=== PATIENT | female | born 2000 | race Caucasian/White ===

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

== ENCOUNTER → 2020-04-09 14:49 | Outpatient (CLI) | payer OTHER, SELFPAY ==
[2020-04-09 15:46] LABS: COVID19 -Nasal RAPID Negative (Negative)
== END ==
PROVIDERS: Visit Provider Physician Assistant
DX: R11.0 Nausea (principal); R52 Pain, unspecified
CPT/HCPCS: 87635

== ENCOUNTER 2020-12-22 22:41 | Emergency (ER) | payer OTHER, SELFPAY ==
[2020-12-22 22:52] VITALS: BP 120/77; PULSE 77; RESP 18; TEMP 36.8; O2SAT 99; BMI 18.9
--- NOTE | 2020-12-23 02:31 | ED.DENTAL ---
HPI - Dental/Oral General Chief complaint: Dental/Oral Stated complaint: LEFT SIDE SWELLING OF FACE Time Seen by Provider: 12/23/20 02:12 Source: patient Mode of arrival: Ambulatory Limitations: no limitations History of Present Illness HPI Narrative: Female who has history of chronic kidney issues with kidney transplant in the past presenting with sudden onset of left-sided facial swelling. He he states that it started while she was eating soup. She does not have any dental pain but started noticing some discomfort in her left lower jaw. Boyfriend thought that her face was getting more swollen. No difficulty swallowing or breathing. She was sleeping is before I entered the room Related Data Home Medications Medication Instructions Recorded Confirmed [BAKING SODA] 1 5ml Q DAY #0 01/12/16 04/09/20 cholecalciferol (vitamin D3) 25 1,000 unit PO QDAY #0 tab 01/12/16 04/09/20 mcg (1,000 unit) tablet (Vitamin D3) Allergies Allergy/AdvReac Type Severity Reaction Status Date / Time ibuprofen [IBUPROFEN] Allergy Unknown KIDNEY Verified 12/22/20 22:52 TRANSPLANT PT Review of Systems Review of Systems Narrative: GENERAL: Denies chills,fever HEENT: See HPI RESPIRATORY: Denies dyspnea, cough, wheezing CARDIOVASCULAR: Denies chest pain, palpitations GASTROINTESTINAL: Denies nausea, vomiting MUSCULOSKELETAL: Denies extremity pain, injury SKIN: No rash, no laceration, no pruritus NEUROLOGIC: Denies weakness, dizziness, headache, numbness 8 point review of systems is negative except for those stated above and HPI Patient History Medical History (Updated 12/23/20 @ 02:39 by Kaya Carrillo DO) Cloacal malformation URI (upper respiratory infection) Surgical History Kidney transplant recipient Social History lives independently: Yes Smoking Status: Never smoker Smoking Status: Never smoker alcohol intake frequency: 0-2 drinks per day Substance Use Type: does not use Exam Initial Vital Signs Initial Vital Signs: Vital Signs Temperature 98.2 F 12/22/20 22:52 Pulse Rate 77 12/22/20 22:52 Respiratory Rate 18 12/22/20 22:52 Blood Pressure 120/77 12/22/20 22:52 Pulse Oximetry 99 12/22/20 22:52 GENERAL: Well-appearing, well-nourished and in no acute distress. HENT: Minimal swelling noted on left side no cervical lymphadenopathy EARS: Ears are evaluated bilaterally no erythema tympanic membrane visualized bilaterally and normal CARDIOVASCULAR: peripheral pulses in tact, cap refill <2 sec RESPIRATORY: No respiratory distress, speaks in full sentences without difficulty, no stridor managing own secretions EXTREMITIES: Normal range of motion, no clubbing or edema. Neurovascularly intact NEUROLOGICAL: Cranial nerves II through XII grossly intact. Normal gait and speech. SKIN: Warm, dry, no petechiae, no rashes or lesions. Course Vital Signs Vital signs: Vital Signs - 8 hr 12/22/20 22:52 12/23/20 02:47 Temperature 98.2 F 97.9 F Pulse Rate 77 68 Respiratory Rate 18 15 Blood Pressure 120/77 101/58 L Pulse Oximetry 99 99 Discharge Plan Departure Patient Disposition: Home Clinical Impression: Acute parotitis Instructions: DI for Parotitis-Adult Activity Restrictions/Additional Instructions: *You have been diagnosed with parotiditis *What to do: This may be early sign of inflammation of a salivary gland. Sometimes these can have stones in them. Recommend sucking on some sour candies and staying hydrated *Continue to take medications as directed *Follow up with your primary care provider in 2-3 days *Return to ER if you should have increasing swelling, redness, fever any new, worsening or concerning symptoms the Prescriptions: No Action cholecalciferol (vitamin D3) [Vitamin D3] 1,000 UNIT tablet 1,000 unit PO QDAY Qty: 0 RF: 0 [BAKING SODA] 1 5ml Q DAY Qty: 0 RF: 0
[2020-12-23 02:47] VITALS: BP 101/58; PULSE 68; RESP 15; TEMP 36.6; O2SAT 99
== END 2020-12-23 03:02 | disposition home or self-care (01) ==
PROVIDERS: Emergency Provider Emergency Medicine
DX: K11.21 Acute sialoadenitis (principal)
CPT/HCPCS: 99281

== ENCOUNTER 2022-06-04 08:10 | Inpatient (IN) | payer OTHER, SELFPAY ==
[2022-06-04] VITALS (26 sets, daily range): BP systolic 93–117; BP diastolic 61–77; PULSE 67–89; RESP 18–19; TEMP 36.5–36.8; O2SAT 97–100; BMI 18.3; BMI 17.6
--- NOTE | 2022-06-04 08:28 | ED.NAVMDI ---
HPI - Nausea/Vomiting/Diarrhea General Chief complaint: Abdominal Pain Stated complaint: N/V since Wednesday not keeping anything down Time Seen by Provider: 06/04/22 08:14 History of Present Illness HPI Narrative: 22-year-old female nonsmoker with history renal transplant on anti-rejection medications and prior bowel obstruction presents with her significant other and a chief complaint of a few days nausea in the absence of vomiting. She states that any time she eats or drinks anything in the past few days she is felt nauseated and developed abdominal cramping in his had frequent episodes of diarrhea. She has crampy abdominal pain that builds until bowel movement at which point she feels better. She denies any obviously bad food, recent antibiotics or travel. She denies runny nose, sore throat or cough. She does state that she is beginning to feel a bit dizzy and weak. Related Data Home Medications Medication Instructions Recorded Confirmed [BAKING SODA] 1 5ml Q DAY ##0 01/12/16 04/09/20 cholecalciferol (vitamin D3) 25 1,000 unit PO QDAY #0 tabs 01/12/16 04/09/20 mcg (1,000 unit) tablet (Vitamin D3) Allergies Allergy/AdvReac Type Severity Reaction Status Date / Time ibuprofen [IBUPROFEN] Allergy Unknown KIDNEY Verified 12/22/20 22:52 TRANSPLANT PT Review of Systems Review of Systems Narrative: GENERAL: see HPI HEENT: Denies sinus pain, ear pain, sore throat, difficulty swallowing, dizziness. RESPIRATORY: Denies dyspnea, cough, wheezing, hemoptysis, sputum. CARDIOVASCULAR: Denies chest pain, palpitations, orthopnea, edema, GASTROINTESTINAL: see HPI : see HPI MUSCULOSKELETAL: denies weakness, joint pain, or bony pain SKIN: Denies rash, skin lesions, or other NEUROLOGIC: Denies weakness, headache, numbness, change in speech, confusion, seizures, incoordination. PSYCHIATRIC: No concerning psychosocial issues. 12 point review of systems is negative except for those stated above Patient History Medical History Cloacal malformation URI (upper respiratory infection) Surgical History Kidney transplant recipient Social History household members: significant other and other lives independently: Yes Smoking Status: Never smoker alcohol intake: current Smoking Status: Never smoker alcohol intake frequency: 0-2 drinks per day Substance Use Type: does not use Exam Narrative Exam Narrative: GENERAL: [22] year old patient appears stated age. Well-developed patient, in mild distress. HEAD: Atraumatic. Normocephalic. EYES: Pupils equal round and reactive. Extraocular motions intact. No scleral icterus. No injection or drainage. ENT: Nose without bleeding, purulent drainage. Throat without erythema, tonsillar hypertrophy or exudate. Airway patent. NECK: Trachea midline. Non tender CARDIOVASCULAR: Regular rate and rhythm without murmurs, gallops, or rubs. RESPIRATORY: Clear to auscultation. Breath sounds equal bilaterally. No wheezes, rales, or rhonchi. GASTROINTESTINAL: Abdomen soft, non-tender, nondistended. Bowel sounds present in all 4 quadrants EXTREMITIES: No edema or joint tenderness. BACK: Nontender without deformity or crepitance. No flank tenderness. NEURO: AOx3. SKIN: No rash or erythema of visible areas Initial Vital Signs Initial Vital Signs: Vital Signs Temperature 97.7 F 06/04/22 08:47 Pulse Rate 84 06/04/22 08:47 Respiratory Rate 18 06/04/22 08:47 Blood Pressure 103/69 06/04/22 08:47 Pulse Oximetry 99 06/04/22 08:47 Oxygen Delivery Method 06/04/22 08:47 Course Orders Ordered: ED Orders 06/05/22 08:30 Tacrolimus Routine Acetaminophen (Acetaminophen 325 Mg Tablet) 650 mg PO Q6H PRN PRN Reason: Fever/Mild Pain (1-3) Enoxaparin Sodium (Enoxaparin 40 Mg/0.4 Ml Syringe) 40 mg SUBCUT DAILY [facility] Last Admin: 06/05/22 09:12 Dose: Not Given Documented By: JACKIE Lactated Ringer's (Lactated Ringers) 1,000 mls @ 100 mls/hr IV CONT [facility] Last Admin: 06/05/22 03:32 Dose: 100 mls/hr Documented By: Infusion: 06/05/22 03:32 Dose: 100 mls/hr Documented By: Admin: 06/04/22 17:32 Dose: 100 mls/hr Documented By: Ceftriaxone Sodium 1,000 mg/ (Sodium Chloride) 100 mls @ 200 mls/hr IV Q24H KYLER Last Admin: 06/05/22 10:24 Dose: 200 mls/hr Documented By: JACKIE Loperamide HCl (Loperamide 2 Mg Capsule) 2 mg PO PRN PRN PRN Reason: Diarrhea Naloxone HCl (Naloxone 0.4 Mg/Ml Vial) 0.2 mg IV Q2MIN PRN PRN Reason: Opiate Reversal Ondansetron HCl (Ondansetron 4 Mg/2 Ml Inj) 4 mg IV Q8HR PRN PRN Reason: Nausea And Vomiting Discontinued Medications Ceftriaxone Sodium (Ceftriaxone 2,000 Mg Vial) 1,000 mg IM NOW ONE Stop: 06/04/22 10:30 Last Admin: 06/04/22 13:30 Dose: 1,000 mg Documented By: LYNSEY Sodium Chloride (Normal Saline 0.9%) 1,000 mls @ 1,000 mls/hr IV BOLUS ONE Stop: 06/04/22 09:30 Last Infusion: 06/04/22 10:36 Dose: 0 mls/hr Documented By: Admin: 06/04/22 09:16 Dose: 1,000 mls/hr Documented By: REMIGIO Sodium Chloride (Normal Saline 0.9%) 1,000 mls @ 1,000 mls/hr IV BOLUS ONE Stop: 06/04/22 10:30 Last Infusion: 06/04/22 12:10 Dose: 0 mls/hr Documented By: Admin: 06/04/22 10:37 Dose: 1,000 mls/hr Documented By: REMIGIO Magnesium Sulfate (Magnesium Sulfate) 2 gm in 50 mls @ 25 mls/hr IV NOW ONE Stop: 06/04/22 11:30 Last Infusion: 06/04/22 12:20 Dose: 0 mls/hr Documented By: REMIGIO Co-signed By: REMIGIO(2) Admin: 06/04/22 10:31 Dose: 25 mls/hr Documented By: REMIGIO Co-signed By: REMIGIO(2) Loperamide HCl (Loperamide 2 Mg Capsule) 4 mg PO NOW ONE Stop: 06/04/22 22:32 Last Admin: 06/04/22 22:47 Dose: 4 mg Documented By: KAREN Magnesium Chloride (Magnesium Chloride 64 Mg Tablet) 128 mg PO NOW ONE Stop: 06/05/22 11:46 Last Admin: 06/05/22 11:46 Dose: 128 mg Documented By: JACKIE Ondansetron HCl (Ondansetron 4 Mg/2 Ml Inj) 4 mg IV NOW ONE Stop: 06/04/22 08:32 Last Admin: 06/04/22 09:15 Dose: 4 mg Documented By: REMIGIO Pantoprazole Sodium (Pantoprazole 40 Mg Vial) 40 mg IV NOW ONE Stop: 06/04/22 08:32 Last Admin: 06/04/22 09:15 Dose: 40 mg Documented By: REMIGIO Potassium Chloride (Potassium Chloride 20 Meq Tab) 40 meq PO NOW ONE Stop: 06/05/22 11:31 Last Admin: 06/05/22 11:46 Dose: 40 meq Documented By: JACKIE Vital Signs Vital signs: Vital Signs - 8 hr 06/04/22 08:47 06/04/22 09:24 06/04/22 09:24 Temperature 97.7 F Pulse Rate 84 71 Respiratory Rate 18 Blood Pressure 103/69 93/65 Pulse Oximetry 99 98 Oxygen Delivery Method Room Air 06/04/22 09:26 06/04/22 09:26 06/04/22 09:30 Temperature Pulse Rate 72 Respiratory Rate Blood Pressure 97/62 94/64 Pulse Oximetry 98 Oxygen Delivery Method 06/04/22 09:30 Temperature Pulse Rate 75 Respiratory Rate Blood Pressure Pulse Oximetry 100 Oxygen Delivery Method MDM - Nausea/Vomiting/Diarrhea Lab Data 06/04/22 08:35 06/04/22 08:35 Labs: Lab Results 06/04/22 06/04/22 06/04/22 Range/Units 08:35 08:35 08:35 WBC 7.3 (4.5-11.0) X10^3/uL RBC 4.48 (4.0-5.2) X10^6/uL Hgb 12.5 (12.0-16.0) g/dL Hct 37.6 (36-46) % MCV 83.8 (80-100) fL MCH 27.8 (26-34) PG MCHC 33.2 (30-36) % RDW 14.5 (11.6-14.8) % Plt Count 251 (150-400) X10^3/uL Neut % (Auto) 67.2 (50-75) % Lymph % (Auto) 19.5 L (25-40) % [place] % (Auto) 10.3 (3-14) % Eos % (Auto) 2.7 (2-4) % Baso % (Auto) 0.3 (0-2) % Neut # (Auto) 4900 (0059-7213) /uL Lymph # (Auto) 1400 (7999-9929) /uL [place] # (Auto) 800 (0-900) /uL Eos # (Auto) 200 (0-450) /uL Baso # (Auto) 0 (0-100) /uL Sodium 137 (137-145) mmol/L Potassium 3.2 L (3.4-5.1) mmol/L Chloride 102 (98-107) mmol/L Carbon Dioxide 21 L (22-32) mmol/L BUN 22 H (7-17) mg/dL Creatinine 1.78 H (0.52-1.04) mg/dL Estimated GFR 41 L (>60) mL/min BUN/Creatinine Ratio 12.4 (6-22) Glucose 90 (70-100) mg/dL Calcium 9.0 (8.4-10.2) mg/dL Magnesium 1.3 L (1.6-2.3) mg/dL Total Bilirubin 0.8 (0.2-1.3) mg/dL AST 27 (14-36) IU/L ALT 15 (<35) IU/L Alkaline Phosphatase 60 (38-126) U/L Total Protein 8.1 (6.3-8.2) g/dL Albumin 4.5 (3.5-5.0) g/dL Globulin 3.6 (1.7-4.1) g/dL Albumin/Globulin Ratio 1.3 (1.0-2.8) Lipase 128 (23-300) U/L Urine RBC (0-5/HPF) Urine WBC (0-5/HPF) Ur Squamous Epith Cells (0-5/HPF) Urine Bacteria (None) Ur Culture Indicated? Ur Random Sodium (30-90) mmol/L Urine Creatinine mg/dL Stl C. cayetanensis PCR Not detected (Not Detect) Stool Rotavirus (PCR) Not detected (Not Detect) Stool Adenovirus (PCR) Not detected (Not Detect) Stool Astrovirus (PCR) Detected H (Not Detect) Stool Cryptosporidium PCR Not detected (Not Detect) Stl E.coli Shiga Tox PCR Not detected (Not Detect) St Sh/Enteroin Ecoli PCR Not detected (Not Detect) Stool E coli O157 PCR Not Reportable Stl Enterotoxigenic E PCR Not detected (Not Detect) Stool EPEC (PCR) Not detected (Not Detect) Stl E. histolytica PCR Not detected (Not Detect) Stool Giardia Lamblia PCR Not detected (Not Detect) Stool Sapovirus (PCR) Not detected (Not Detect) Stl P. shigelloides PCR Not detected (Not Detect) St Y.enterocolitica PCR Not detected (Not Detect) Stool Vibrio (PCR) Not detected (Not Detect) Stl Vibrio cholerae PCR Not detected (Not Detect) Stl Enteroaggr Ecoli PCR Not detected (Not Detect) Stl Norovirus GI/GII PCR Not detected (Not Detect) Campylobacter (PCR) Not detected (Not Detect) C. difficile Tox (PCR) Not detected (Not Detect) SARS-CoV-2 (PCR) (Negative) Influenza A (RT-PCR) (NEGATIVE) Influenza B (RT-PCR) (NEGATIVE) RSV (PCR) (Negative) Salmonella (PCR) Not detected (Not Detect) 06/04/22 06/04/22 06/04/22 Range/Units 08:35 08:45 09:08 WBC (4.5-11.0) X10^3/uL RBC (4.0-5.2) X10^6/uL Hgb (12.0-16.0) g/dL Hct (36-46) % MCV (80-100) fL MCH (26-34) PG MCHC (30-36) % RDW (11.6-14.8) % Plt Count (150-400) X10^3/uL Neut % (Auto) (50-75) % Lymph % (Auto) (25-40) % [place] % (Auto) (3-14) % Eos % (Auto) (2-4) % Baso % (Auto) (0-2) % Neut # (Auto) (1410-2244) /uL Lymph # (Auto) (2015-8386) /uL [place] # (Auto) (0-900) /uL Eos # (Auto) (0-450) /uL Baso # (Auto) (0-100) /uL Sodium (137-145) mmol/L Potassium (3.4-5.1) mmol/L Chloride (98-107) mmol/L Carbon Dioxide (22-32) mmol/L BUN (7-17) mg/dL Creatinine (0.52-1.04) mg/dL Estimated GFR (>60) mL/min BUN/Creatinine Ratio (6-22) Glucose (70-100) mg/dL Calcium (8.4-10.2) mg/dL Magnesium (1.6-2.3) mg/dL Total Bilirubin (0.2-1.3) mg/dL AST (14-36) IU/L ALT (<35) IU/L Alkaline Phosphatase (38-126) U/L Total Protein (6.3-8.2) g/dL Albumin (3.5-5.0) g/dL Globulin (1.7-4.1) g/dL Albumin/Globulin Ratio (1.0-2.8) Lipase (23-300) U/L Urine RBC 5-10/hpf H (0-5/HPF) Urine WBC >100/hpf H (0-5/HPF) Ur Squamous Epith Cells 1-5 /hpf (0-5/HPF) Urine Bacteria Many (>30) H (None) Ur Culture Indicated? Specimen cultured Ur Random Sodium 10 L (30-90) mmol/L Urine Creatinine 243.4 mg/dL Stl C. cayetanensis PCR (Not Detect) Stool Rotavirus (PCR) (Not Detect) Stool Adenovirus (PCR) (Not Detect) Stool Astrovirus (PCR) (Not Detect) Stool Cryptosporidium PCR (Not Detect) Stl E.coli Shiga Tox PCR (Not Detect) St Sh/Enteroin Ecoli PCR (Not Detect) Stool E coli O157 PCR Stl Enterotoxigenic E PCR (Not Detect) Stool EPEC (PCR) (Not Detect) Stl E. histolytica PCR (Not Detect) Stool Giardia Lamblia PCR (Not Detect) Stool Sapovirus (PCR) (Not Detect) Stl P. shigelloides PCR (Not Detect) St Y.enterocolitica PCR (Not Detect) Stool Vibrio (PCR) (Not Detect) Stl Vibrio cholerae PCR (Not Detect) Stl Enteroaggr Ecoli PCR (Not Detect) Stl Norovirus GI/GII PCR (Not Detect) Campylobacter (PCR) (Not Detect) C. difficile Tox (PCR) (Not Detect) SARS-CoV-2 (PCR) Negative (Negative) Influenza A (RT-PCR) Flu a negative (NEGATIVE) Influenza B (RT-PCR) Flu b negative (NEGATIVE) RSV (PCR) Negative (Negative) Salmonella (PCR) (Not Detect) Urine Dip Bedside Urine Glucose Negative Bedside Urine Bilirubin - Negative Bedside Urine Ketone - Negative Urine Specific [place] 1.020 Bedside Urine Occult Blood ++ Bedside Urine pH 6.0 Bedside Urine Protein + 30 Bedside Urine Urobilinogen - Negative Bedside Urine Nitrite + Positive Bedside Urine Leukocytes +/- 15 Esterase MDM Narrative Medical decision making narrative: CC: 22-year-old with history of renal transplant on anti-rejection medications presents with a few days of nausea and frequent diarrhea Complicating co-morbidities: Renal transplant, anti-rejection, prior SBO Data collected from: Patient Medical records reviewed: Prior notes reviewed in our EMR Differential considered, but not limited to: Gastroenteritis, flu, COVID, bowel obstruction versus other Exam documented above, pertinent findings include: Moist mucous membranes, well-hydrated, heart rate regular, clear lungs, abdomen soft with bowel sounds present Lab Test results independently reviewed as above. Pertinent findings: significant jump in creatinine, UTI, astrovirus GI panel Independently reviewed EKG as above Imaging studies independently reviewed: AAS without obstruction, Renal US without obstructive uropathy Consultations: hospitalist happy to accept Treatments: fluids, ABX Re-evaluations: some improvement in how she feels Patient with frequent diarrhea develops UTI and subsequent pre-renal cause of RASHAD, given history of renal transplant she is high risk and will require hospitalization for ongoing treatment and further stabilization Discharge Plan Departure Patient Disposition: Admitted as Observation Clinical Impression: Acute kidney injury, Diarrhea, UTI (urinary tract infection) Admit Date/Time: 06/04/22 16:56 Admit Provider: Hugo Hernandez
[2022-06-04 08:46] LABS: Add Manual Diff / Slide Review NO; Basophils Absolute Auto 0 /uL (0-100); Basophils Percent Auto 0.3 % (0-2); Eosinophils Absolute Auto 200 /uL (0-450); Eosinophils Percent Auto 2.7 % (2-4); Hematocrit 37.6 % (36-46); Hemoglobin 12.5 g/dL (12.0-16.0); Lymphocytes Absolute Auto 1400 /uL (1100-4500); Lymphocytes Percent Auto 19.5 % (25-40); Mean Corpuscular HGB Conc 33.2 % (30-36); Mean Corpuscular Hemoglobin 27.8 PG (26-34); Mean Corpuscular Volume 83.8 fL (80-100); Monocytes Absolute Auto 800 /uL (0-900); Monocytes Percent Auto 10.3 % (3-14); Neutrophils Absolute Auto 4900 /uL (1500-7000); Neutrophils Percent Auto 67.2 % (50-75); Platelet Count 251 X10^3/uL (150-400); Red Blood Cell Count 4.48 X10^6/uL (4.0-5.2); Red Cell Distribution Width 14.5 % (11.6-14.8); White Blood Cell Count 7.3 X10^3/uL (4.5-11.0)
[2022-06-04 08:58] LABS: Alanine Aminotransferase 15 IU/L (<35); Albumin 4.5 g/dL (3.5-5.0); Albumin Globulin Ratio 1.3 (1.0-2.8); Alkaline Phosphatase 60 U/L (38-126); Aspartate Aminotransferase 27 IU/L (14-36); BUN Creatinine Ratio 12.4 (6-22); Bilirubin Total 0.8 mg/dL (0.2-1.3); Blood Urea Nitrogen 22 mg/dL (7-17); Carbon Dioxide 21 mmol/L (22-32); Chloride 102 mmol/L (98-107); Estimated Glomerular Filt Rate 41 mL/min (>60); Globulin 3.6 g/dL (1.7-4.1); Glucose 90 mg/dL (70-100); HEMOLYSIS < 15 (0-50); Lipase 128 U/L (23-300); Magnesium 1.3 mg/dL (1.6-2.3); Potassium 3.2 mmol/L (3.4-5.1); Sodium 137 mmol/L (137-145); Total Protein 8.1 g/dL (6.3-8.2)
[2022-06-04] MEDS: ONDANSETRON 4 MG/2 ML INJ IV (09:15)
[2022-06-04] MEDS: PANTOPRAZOLE 40 MG VIAL IV (09:15)
[2022-06-04] MEDS: SODIUM CHLORIDE 0.9% 1,000 ML 1000 ML IV ×2 (09:16→10:37)
[2022-06-04 09:30] LABS: Bacteria Urine Many (>30); Culture Indicated Urine Specimen Cultured; RBC Urine 5-10/HPF (0-5/HPF); Squamous Epithelial Cell Urine 1-5 /HPF (0-5/HPF); WBC Urine >100/HPF (0-5/HPF)
--- NOTE | 2022-06-04 09:30 | DI.RAD.S_ITS ---
PROCEDURE: XR ACUTE ABDOMEN SERIES INDICATIONS: abd pain, nausea, diarrhea TECHNIQUE: One view chest and two views of the abdomen were acquired. COMPARISON: None. FINDINGS: Surgical changes and devices: Extensive surgical clips, left arm soft tissues.. Chest: Lungs are clear. Heart size is normal. No pleural effusions. No pneumoperitoneum. Abdomen: Bowel gas pattern is normal. No suspicious calcifications. Visualized solid organ contours appear normal. Bones: No suspicious bony lesions. IMPRESSION: No evidence of acute process in the abdomen and chest. Dictated by: Jaime Rubio M.D. on 06/04/2022 at 9:54 Approved by: Jaime Ruboi M.D. on 06/04/2022 at 9:55
[2022-06-04 09:39] LABS: Influenza A - CEPHEID Flu A NEGATIVE (NEGATIVE); Influenza B - CEPHEID Flu B NEGATIVE (NEGATIVE); Respiratory Syncytial Virus Negative (Negative)
[2022-06-04 09:48] LABS: COVID-19 CEPHEID 4-PLEX PCR Negative (Negative)
[2022-06-04] MEDS: MAGNESIUM SULFATE 2 GM/50 ML PIGGYBACK IV (10:31)
[2022-06-04 10:46] LABS: Adenovirus F 40/41 Not Detected (Not Detect); Astrovirus Detected (Not Detect); Campylobacter Not Detected (Not Detect); Clostridium difficile toxin AB Not Detected (Not Detect); Cryptosporidium Not Detected (Not Detect); Cyclospora cayetanensis Not Detected (Not Detect); Entamoeba histolytica Not Detected (Not Detect); Enteroaggregative E.coli Not Detected (Not Detect); Enteropathogenic E.coli Not Detected (Not Detect); Enterotoxigenic E.coli It/st Not Detected (Not Detect); Giardia lamblia Not Detected (Not Detect); Norovirus GI/GII Not Detected (Not Detect); Plesiomonsa shigelloides Not Detected (Not Detect); Rotavirus A Not Detected (Not Detect); Salmonella Not Detected (Not Detect); Sapovirus Not Detected (Not Detect); Shiga-like toxin-prod E.coli Not Detected (Not Detect); Shigella/Enteroinvasive E.coli Not Detected (Not Detect); Vibrio Not Detected (Not Detect); Vibrio cholerae Not Detected (Not Detect); Yersinia enterocolitica Not Detected (Not Detect)
--- NOTE | 2022-06-04 11:15 | DI.US.S_ITS ---
PROCEDURE: US RENAL COMPLETE INDICATIONS: RENAL FAILURE TECHNIQUE: Real-time scanning was performed of the kidneys and bladder, with image documentation. COMPARISON: [facility], , RENAL COMPLETE, 06/03/2018, 8:06. FINDINGS: Kidneys: The right kidney is not definitely seen. A potential right renal remnant can be seen. The left kaw kidney measures 7.1 cm in length, without stones, hydronephrosis or masses seen. Calcifications can be seen throughout the left kidney. The left kidney is overall not well seen, secondary to overlying bowel. There is a left-sided transplant kidney within the left lower quadrant, with a length of 11.8 cm and a cortical thickness of 1.5 cm. No hydronephrosis, stones, or masses can be seen of the transplant kidney. Bladder: Pre-void bladder volume is 45 mL. No postvoid residual was obtained, the patient normally self caths. Pre-void images demonstrate no intraluminal masses or stones. A trace amount urinary bladder debris can be seen. On pre-void images, only a left ureteral jet can be seen with color Doppler interrogation. (Of note, ureteral jets may not be detectable in up to 25% of cases due to insufficient differences in specific gravity between ureteral and bladder urine). Miscellaneous: No free pelvic fluid. IMPRESSION: Unremarkable transplant kidney. Right kaw kidney not well seen. Left if kidney with punctate calcifications throughout. Bladder debris seen. Please correlate with UTI. Dictated by: Bernardo Powell M.D. on 06/04/2022 at 11:22 Approved by: Bernardo Powell M.D. on 06/04/2022 at 11:25
[2022-06-04 12:31] LABS: Creatinine Urine Random 243.4 mg/dL; Sodium Urine Random 10 mmol/L (30-90)
[2022-06-04] MEDS: cefTRIAXone 2,000 MG VIAL 1000 MG IM (13:30)
--- NOTE | 2022-06-04 13:35 | P.HP_ITS ---
History of Present Illness History of Present Illness Date Patient Seen: 06/04/22 Time Patient Seen: 14:00 Chief complaint: N/V since Wednesday not keeping anything down Narrative: Ms. Quispe is a 22W with PMH VATER syndrome, s/p renal transplant, history of bowel obstruction, who comes in to the hospital with nausea and diarrhea. She denies having any episodes of vomiting. No blood in stools. She notes for the last few days, since Wednesday she has diarrhea frequently, especially after eating. She has had it as frequently as hourly. She has had no recent travel, no antibiotics. She does not think she has eaten any food that has caused this. She came in feeling weak and dizzy. She notes she has some family members who have similar symptoms. She does not have dysuria, but she has bladder pain after urinating. No fevers/chills. In the ED workup was done, vitals notable for afebrile, heart rate in the 80s, blood pressure 100s/60s. Labs notable for WBC. 7.3, hgb 12.5, plts 251. Potassium 3.2, Creatinine 1.78. COVID negative, flu negative. Urine with >100 WBCs, many bacteria, positive nitrates, positive leuk esterase. Urine culture pending. She was given antibiotics and admitted for further treatment. She says she takes mmf 360mg BID, prednisone 5mg daily, and tacrolimus 2mg BID. Patient History Medical History Cloacal malformation URI (upper respiratory infection) Surgical History Kidney transplant recipient Family & Social History Social History: lives independently Yes Safety & Behavioral: Feels Safe in Current Yes Environment Been Physically Hurt or No Threatened By a Person Tobacco & Substance use: Smoking Status Never smoker alcohol intake frequency 0-2 drinks per day Substance Use Type does not use Meds Home Medications and Allergies Home Medications Medication Instructions Recorded Confirmed Type [BAKING SODA] 1 5ml Q DAY ##0 01/12/16 04/09/20 History cholecalciferol (vitamin D3) 25 1,000 unit PO QDAY #0 tabs 01/12/16 04/09/20 History mcg (1,000 unit) tablet (Vitamin D3) Allergies Allergy/AdvReac Type Severity Reaction Status Date / Time ibuprofen [IBUPROFEN] Allergy Unknown KIDNEY Verified 12/22/20 22:52 TRANSPLANT PT Review of Systems Review of Systems Narrative: 14 systems reviewed and negative aside from what is noted in HPI Exam Vital Signs (past 8 hours): - 06/04/22 08:47 06/04/22 09:24 06/04/22 09:24 Temperature 97.7 F Pulse Rate 84 71 Respiratory Rate 18 Blood Pressure 103/69 93/65 Pulse Oximetry 99 98 Oxygen Delivery Method Room Air 06/04/22 09:26 06/04/22 09:26 06/04/22 09:30 Temperature Pulse Rate 72 Respiratory Rate Blood Pressure 97/62 94/64 Pulse Oximetry 98 Oxygen Delivery Method 06/04/22 09:30 06/04/22 10:00 06/04/22 10:00 Temperature Pulse Rate 75 73 Respiratory Rate Blood Pressure 97/65 Pulse Oximetry 100 100 Oxygen Delivery Method 06/04/22 10:15 06/04/22 10:15 06/04/22 10:30 Temperature Pulse Rate 67 Respiratory Rate Blood Pressure 100/65 101/66 Pulse Oximetry 100 Oxygen Delivery Method 06/04/22 10:30 06/04/22 10:45 06/04/22 10:59 Temperature Pulse Rate 74 74 Respiratory Rate Blood Pressure 99/61 Pulse Oximetry 99 100 Oxygen Delivery Method 06/04/22 10:59 06/04/22 11:00 06/04/22 11:00 Temperature Pulse Rate 74 69 Respiratory Rate Blood Pressure 96/63 Pulse Oximetry 97 98 Oxygen Delivery Method 06/04/22 11:15 06/04/22 11:15 06/04/22 11:30 Temperature Pulse Rate 71 Respiratory Rate Blood Pressure 99/66 101/67 Pulse Oximetry 100 Oxygen Delivery Method 06/04/22 11:30 Temperature Pulse Rate 71 Respiratory Rate Blood Pressure Pulse Oximetry 100 Oxygen Delivery Method Oxygen Delivery Method Room Air Narrative Exam Narrative: GEN: no acute distress HEENT: dry mucous membranes, PERRL NECK: trachea midline, no JVD CV: regular rate and rhythm, no murmurs PULM: clear bilaterally, no wheezes, rhonchi, rales ABD: soft, nontender, nondistended, no organomegaly, normal bowel sounds EXT: warm and well perfused, no edema NEURO: awake, alert, oriented, no focal deficits Objective Labs 02/23/23 08:35 06/04/22 08:35 Labs: Laboratory Results - last 24 hr 06/04/22 06/04/22 06/04/22 08:35 08:35 08:35 WBC 7.3 RBC 4.48 Hgb 12.5 Hct 37.6 MCV 83.8 MCH 27.8 MCHC 33.2 RDW 14.5 Plt Count 251 Neut % (Auto) 67.2 Lymph % (Auto) 19.5 L [place] % (Auto) 10.3 Eos % (Auto) 2.7 Baso % (Auto) 0.3 Neut # (Auto) 4900 Lymph # (Auto) 1400 [place] # (Auto) 800 Eos # (Auto) 200 Baso # (Auto) 0 Sodium 137 Potassium 3.2 L Chloride 102 Carbon Dioxide 21 L BUN 22 H Creatinine 1.78 H Estimated GFR 41 L BUN/Creatinine Ratio 12.4 Glucose 90 Calcium 9.0 Magnesium 1.3 L Total Bilirubin 0.8 AST 27 ALT 15 Alkaline Phosphatase 60 Total Protein 8.1 Albumin 4.5 Globulin 3.6 Albumin/Globulin Ratio 1.3 Lipase 128 Urine RBC Urine WBC Ur Squamous Epith Cells Urine Bacteria Ur Culture Indicated? Ur Random Sodium Urine Creatinine Stl C. cayetanensis PCR Not detected Stool Rotavirus (PCR) Not detected Stool Adenovirus (PCR) Not detected Stool Astrovirus (PCR) Detected H Stool Cryptosporidium PCR Not detected Stl E.coli Shiga Tox PCR Not detected St Sh/Enteroin Ecoli PCR Not detected Stool E coli O157 PCR Not Reportable Stl Enterotoxigenic E PCR Not detected Stool EPEC (PCR) Not detected Stl E. histolytica PCR Not detected Stool Giardia Lamblia PCR Not detected Stool Sapovirus (PCR) Not detected Stl P. shigelloides PCR Not detected St Y.enterocolitica PCR Not detected Stool Vibrio (PCR) Not detected Stl Vibrio cholerae PCR Not detected Stl Enteroaggr Ecoli PCR Not detected Stl Norovirus GI/GII PCR Not detected Campylobacter (PCR) Not detected C. difficile Tox (PCR) Not detected SARS-CoV-2 (PCR) Influenza A (RT-PCR) Influenza B (RT-PCR) RSV (PCR) Salmonella (PCR) Not detected 06/04/22 06/04/22 06/04/22 08:35 08:45 09:08 WBC RBC Hgb Hct MCV MCH MCHC RDW Plt Count Neut % (Auto) Lymph % (Auto) [place] % (Auto) Eos % (Auto) Baso % (Auto) Neut # (Auto) Lymph # (Auto) [place] # (Auto) Eos # (Auto) Baso # (Auto) Sodium Potassium Chloride Carbon Dioxide BUN Creatinine Estimated GFR BUN/Creatinine Ratio Glucose Calcium Magnesium Total Bilirubin AST ALT Alkaline Phosphatase Total Protein Albumin Globulin Albumin/Globulin Ratio Lipase Urine RBC 5-10/hpf H Urine WBC >100/hpf H Ur Squamous Epith Cells 1-5 /hpf Urine Bacteria Many (>30) H Ur Culture Indicated? Specimen cultured Ur Random Sodium 10 L Urine Creatinine 243.4 Stl C. cayetanensis PCR Stool Rotavirus (PCR) Stool Adenovirus (PCR) Stool Astrovirus (PCR) Stool Cryptosporidium PCR Stl E.coli Shiga Tox PCR St Sh/Enteroin Ecoli PCR Stool E coli O157 PCR Stl Enterotoxigenic E PCR Stool EPEC (PCR) Stl E. histolytica PCR Stool Giardia Lamblia PCR Stool Sapovirus (PCR) Stl P. shigelloides PCR St Y.enterocolitica PCR Stool Vibrio (PCR) Stl Vibrio cholerae PCR Stl Enteroaggr Ecoli PCR Stl Norovirus GI/GII PCR Campylobacter (PCR) C. difficile Tox (PCR) SARS-CoV-2 (PCR) Negative Influenza A (RT-PCR) Flu a negative Influenza B (RT-PCR) Flu b negative RSV (PCR) Negative Salmonella (PCR) Assessment & Plan Assessment & Plan narrative: 1. RASHAD -suspect secondary to hypovolemia -check tacrolimus level as below -continue anti-rejection meds -renal ultrasound show no hydronephrosis -trend creatinine daily 2. Gastroenteritis -astrovirus noted in stool -contact precautions -start with clear liquid diet, and advance as tolerated -continue with IV fluids while significant diarrhea 3. s/p renal transplant -continue transplant medications with prednisone, tacrolimus and MMF -check tacrolimus level in AM before first dose 4. UTI -continue IV ceftriaxone -follow up with urine culture I have discussed the plan of care with the patient, and discussed treatment with the ED physician and bedside nurse. I have reviewed the labs, and chest/abdominal xray and renal ultrasound. CODE: Full Proxy: Adelina Quispe, mother Time Spent With Patient Critical Care time: I spent a total of [] minutes of critical care time on this patient's care today; this time is exclusive of procedural time. Quality [facility] - Meds 'Current medications' to include all prescriptions, [id number] products, herbals, cannabis/cannabidiol products, and vitamin/mineral/dietary (nutritional) supplements. I have utilized all available resources to obtain, update, or review the patient?s current medications. [If Yes, STOP here]: Yes
--- NOTE | 2022-06-04 17:29 | CM.IDA ---
Initial DCP Assessment Patient is 22 y/o female who presents to ED due to concern for N/V/D and abdominal pain for the last 5 days, patient has also not been able to eat. Patient endorses she does not have a PCP and is not interested in a PCP. Patient endorses she has a [employer] in [place]. Patient has [facility] PPO and [employer] insurance. Patient has hx of renal transplant, PMH Vater Syndrome and hx of bowel obstruction. ARTIFICIAL LOG MACHINE OPERATOR enters room to meet with patient, patient is present with boyfriend. Patient endorses she resides in [place] with boyfriend and his family. 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 ARTIFICIAL LOG MACHINE OPERATOR asks if patient has any anticipated DCP needs and she denies any needs. Patient denies need for PCP and denies need for any further specialists for f/u. Per Hospitalist, patient has been admitted to acute care for RASHAD, Gastroenteritis, and UTI. Plan: DCP to f/u with POC, patient denies DCP needs at this time, patient admitted to acute care. PATRICIA Otero Discharge Planning/Care Management CM Discharge Assessment Start: 06/04/22 17:27 Freq: Status: Active Protocol: Document 06/04/22 17:27 LN (Rec: 06/04/22 17:28 LN [id number]) Discharge Planning Assessment Assigned Commercial Credit Analyst PATRICIA Mercer Advance Directives? No History Provided By Patient,Medical Record Has Patient been admitted in last 30 No days? Prior Living Arrangements House Household Members significant other,other Type of transportation used prior to Drives own vehicle admit Independent with ADL's Yes Is patient alert and oriented? Yes Discharge Plan Home Please Provide Date Initial DC 06/04/22 Assessment Was Performed
[2022-06-04] MEDS: LACTATED RINGERS 1,000 ML 100 ML IV (17:32)
--- NOTE | 2022-06-04 19:16 | PC.NURSE ---
Admit note: Pt arrived via wheelchair, able to ambulate to bed, connected to monitoring equipment, VSS, oriented to room and call light system, able to make needs known, bed low and locked, call light within reach, will continue to monitor.
[2022-06-04] MEDS: LOPERAMIDE 2 MG CAPSULE 4 MG PO (22:47)
[2022-06-05] VITALS (11 sets, daily range): BP systolic 85–99; BP diastolic 53–72; PULSE 64–84; RESP 16–22; TEMP 35.7–37.1; O2SAT 98–100
[2022-06-05] MEDS: LACTATED RINGERS 1,000 ML 100 ML IV ×3 (03:32→23:37)
[2022-06-05 05:17] LABS: Add Manual Diff / Slide Review NO; Basophils Absolute Auto 0 /uL (0-100); Basophils Percent Auto 0.3 % (0-2); Eosinophils Absolute Auto 100 /uL (0-450); Eosinophils Percent Auto 1.8 % (2-4); Hematocrit 24.3 % (36-46); Lymphocytes Absolute Auto 1700 /uL (1100-4500); Lymphocytes Percent Auto 33.7 % (25-40); Mean Corpuscular Hemoglobin 27.5 PG (26-34); Mean Corpuscular Volume 83.4 fL (80-100); Monocytes Absolute Auto 500 /uL (0-900); Monocytes Percent Auto 10.1 % (3-14); Neutrophils Absolute Auto 2700 /uL (1500-7000); Neutrophils Percent Auto 54.1 % (50-75); Platelet Count 165 X10^3/uL (150-400); Red Blood Cell Count 2.91 X10^6/uL (4.0-5.2); White Blood Cell Count 4.9 X10^3/uL (4.5-11.0)
[2022-06-05 05:34] LABS: BUN Creatinine Ratio 11.2 (6-22); Blood Urea Nitrogen 12 mg/dL (7-17); Calcium 7.7 mg/dL (8.4-10.2); Carbon Dioxide 16 mmol/L (22-32); Chloride 111 mmol/L (98-107); Estimated Glomerular Filt Rate > 60 mL/min (>60); Glucose 64 mg/dL (70-100); HEMOLYSIS < 15 (0-50); Magnesium 1.4 mg/dL (1.6-2.3); Potassium 3.4 mmol/L (3.4-5.1); Sodium 137 mmol/L (137-145)
--- NOTE | 2022-06-05 06:31 | PC.NURSE ---
Night Note-Patient had 2 liquid stools in the evening, Immodium given, says she had none overnight. Denies pain or nausea. Lab value glucose 64 in am, patient rouses from sleep A/O x4, drinking apple juice.
[2022-06-05] MEDS: cefTRIAXone 1,000 MG in SODIUM CHLORIDE 0.9% 100 ML 200 MG IV (10:24)
[2022-06-05] MEDS: POTASSIUM CHLORIDE 20 MEQ TAB 40 MEQ PO (11:46)
[2022-06-05] MEDS: MAGNESIUM CHLORIDE 64 MG TABLET 128 MG PO (11:46)
--- NOTE | 2022-06-05 14:46 | PM.PN.1 ---
Subjective Subjective Date Patient Seen: 06/05/22 Time Patient Seen: 15:45 Interval history: She is seen in her room here today to follow-up her immunosuppression, kidney transplant, Astrovirus colitis, hypomagnesemia and acute kidney injury. Her creatinine has dropped from 1.78 down to 1.07. The magnesium remains low at 1.4. She has received 2 g of IV magnesium along with 128 mg of p.o. magnesium with a repeat level pending for tomorrow. Also quite notable is a drop in her hemoglobin from 12.5 down to 8.0, likely related to rehydration but quite a significant drop so we will be repeating it at this time to make sure there is no occult GI bleeding that has not been evident so far. She continues to have copious amounts of liquid stool around the clock, including at night, and at this point is also complaining of abdominal pain on the right side. When I suggested a CT scan to evaluate for colitis and the cause of the abdominal pain she was reluctant because she ?does not want anymore tests. ? Her CO2 level was 16. We review that she has a renal transplant from the age of 16, which is what she is on the tacrolimus, CellCept and prednisone for. She says she has never been on a different dose of tacrolimus and has never had diarrhea caused by that before. Her UA was also suggestive of a UTI with the urine culture growing ?Gram-negative bacilli, and she has been on ceftriaxone IV. She usually gets her transplant care at [facility] and her primary care physician is in [place]. Exam Vital Signs (past 8 hours): - 06/05/22 07:00 06/05/22 07:00 06/05/22 08:00 Temperature 96.3 F L Pulse Rate 84 Respiratory Rate 16 Blood Pressure 89/53 L Pulse Oximetry 99 99 Oxygen Delivery Method Room Air Room Air 06/05/22 12:00 06/05/22 13:00 Temperature 98.8 F Pulse Rate 64 Respiratory Rate 16 Blood Pressure 99/72 Pulse Oximetry 99 100 Oxygen Delivery Method Room Air Oxygen Delivery Method Room Air Oxygen Flow Rate 0 Narrative Exam Narrative: Alert and oriented x3, no apparent distress. Heart is regular rate and rhythm without murmur Lungs are clear to auscultation bilaterally Abdomen is soft, bowel sounds active, moderately tender with significant guarding in the right upper quadrant and right lower quadrant. Extremities have no ankle edema Objective Labs 06/05/22 03:56 06/05/22 03:56 Labs: Laboratory Results - last 24 hr 06/05/22 06/05/22 03:56 03:56 WBC 4.9 RBC 2.91 L Hgb 8.0 L Hct 24.3 L MCV 83.4 MCH 27.5 MCHC 33.0 RDW 14.0 Plt Count 165 Neut % (Auto) 54.1 Lymph % (Auto) 33.7 [place] % (Auto) 10.1 Eos % (Auto) 1.8 L Baso % (Auto) 0.3 Neut # (Auto) 2700 Lymph # (Auto) 1700 [place] # (Auto) 500 Eos # (Auto) 100 Baso # (Auto) 0 Sodium 137 Potassium 3.4 Chloride 111 H Carbon Dioxide 16 L BUN 12 Creatinine 1.07 H Estimated GFR > 60 BUN/Creatinine Ratio 11.2 Glucose 64 L Calcium 7.7 L Magnesium 1.4 L PFSH Medical History Cloacal malformation URI (upper respiratory infection) Surgical History Kidney transplant recipient Social History household members: significant other and other lives independently: Yes Smoking Status: Never smoker alcohol intake: current Assessment & Plan Assessment & Plan narrative: Assessment & Plan narrative: 1. RASHAD -resolved, secondary to hypovolemia -creatinine 1.07 on 06/05 -tacrolimus level pending -continue anti-rejection meds -renal ultrasound show no hydronephrosis -trend creatinine daily 2. Gastroenteritis -astrovirus noted in stool -contact precautions -continue diet as tolerated -continue with IV fluids while significant diarrhea -the patient has tenderness and guarding on the right side of the abdomen is concerning and very suggestive of active colitis. -the patient is very reluctant to proceed with CT scan imaging, much less colonoscopy. This may become necessary but will be deferred on 06/05 3. s/p renal transplant -continue transplant medications with prednisone, tacrolimus and MMF -tacrolimus level is a send out and usually takes several days 4. UTI -continue IV ceftriaxone -urine culture growing Gram-negative bacilli on 06/05 5. Normocytic anemia -her hemoglobin on admission was 12.5, dropping to 8.0 on a.m. of 06/05 -recheck hemoglobin on p.m. of 06/05 due to the rapid drop without signs of acute GI bleeding. 6. Hypomagnesemia -secondary to diarrhea -magnesium 1.4 on 06/05, treated with 2 g IV and initiation of daily 128 mg p.o. magnesium -follow daily CODE: Full Proxy: Adelina Quispe, mother Time Spent With Patient Critical Care time: I spent a total of [] minutes of critical care time on this patient's care today; this time is exclusive of procedural time.
--- NOTE | 2022-06-05 15:38 | CM.DANOTE ---
DCP: Assessment, Patient is a 22 y/o female who presented to ED via POV with due to concern for N/V/D and abdominal pain for the previous 5 days which was affecting her nutritional intake. She presents with RASHAD, Gastroenteritis, UTI. She has noted hx of renal transplant, PMH Vater Syndrome and hx of bowel obstruction. PCP: Frannie Vanessa , Glass Cutting Machine Feeder This CM met with pt in her room. Introduced self and role. Pt's boyfriend is present. Pt states that she lives in [place] with her boyfriend (Óscar). She states that her Mom is her main contact. 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 Patient States that she does not have a current PCP and she gets her care via telehealth through Dr. Frannie Vanessa. Pt is unsure which hospital Dr. Vanessa works out of although when this CM reviews her name she is noted to be a Glass Cutting Machine Feeder out of [place]. Pt reports that she had a kidney transplant in 2016 and that thus far she reports I have not had any complications. Plan: Plan. Home with significant other when medically stable. Jordyn Inman RN Case Manager Discharge Planning/Care Management CM Discharge Assessment Start: 06/04/22 17:27 Freq: Status: Active Protocol: Document 06/04/22 17:27 LN (Rec: 06/04/22 17:28 LN [id number]) Discharge Planning Assessment Assigned Personalization Specialist PATRICIA Mercer Advance Directives? No History Provided By Patient,Medical Record Has Patient been admitted in last 30 No days? Prior Living Arrangements House Household Members significant other,other Type of transporation used prior to Drives own vehicle admit Independent with ADL's Yes Is patient alert and oriented? Yes Discharge Plan Home Please Provide Date Initial DC 06/04/22 Assessment Was Performed Document 06/05/22 15:32 MEGAN (Rec: 06/05/22 15:34 JS [id number]) Discharge Planning Assessment Assigned Personalization Specialist Jordyn Inman RN Case Manager Advance Directives? No History Provided By Patient,Medical Record Has Patient been admitted in last 30 No days? Prior Living Arrangements House Household Members significant other,other Type of transporation used prior to Drives own vehicle admit Independent with ADL's Yes Is patient alert and oriented? Yes Caregiver for Another No Barriers to Discharge No Discharge Plan Home Whiteboard Updated in Patient Room with Yes name and ext. # of Personalization Specialist Review Status In Process Please Provide Date Initial DC 06/04/22 Assessment Was Performed Next Review Type Continued Stay Review
[2022-06-05 16:23] LABS: Add Manual Diff / Slide Review NO; Basophils Absolute Auto 200 /uL (0-100); Eosinophils Absolute Auto 100 /uL (0-450); Eosinophils Percent Auto 1.6 % (2-4); Hematocrit 27.6 % (36-46); Hemoglobin 9.4 g/dL (12.0-16.0); Lymphocytes Absolute Auto 700 /uL (1100-4500); Lymphocytes Percent Auto 15.6 % (25-40); Mean Corpuscular Hemoglobin 28.4 PG (26-34); Mean Corpuscular Volume 83.4 fL (80-100); Monocytes Absolute Auto 400 /uL (0-900); Monocytes Percent Auto 7.7 % (3-14); Neutrophils Absolute Auto 3400 /uL (1500-7000); Neutrophils Percent Auto 71.1 % (50-75); Platelet Count 188 X10^3/uL (150-400); Red Blood Cell Count 3.31 X10^6/uL (4.0-5.2); Red Cell Distribution Width 14.3 % (11.6-14.8); White Blood Cell Count 4.7 X10^3/uL (4.5-11.0)
[2022-06-05] MEDS: MYCOPHENOLATE SODIUM 180 MG 2 EACH PO (18:56)
[2022-06-05] MEDS: TACROLIMUS 0.5 MG CAPSULE 2 MG PO (18:58)
[2022-06-05] MEDS: LOPERAMIDE 2 MG CAPSULE PO (20:37)
[2022-06-06] VITALS (9 sets, daily range): BP systolic 88–105; BP diastolic 51–72; PULSE 64–66; RESP 15–18; TEMP 36.6–37.4; O2SAT 97–100
[2022-06-06 06:43] LABS: Add Manual Diff / Slide Review NO; Basophils Absolute Auto 0 /uL (0-100); Basophils Percent Auto 0.2 % (0-2); Eosinophils Absolute Auto 100 /uL (0-450); Eosinophils Percent Auto 2.3 % (2-4); Hematocrit 26.3 % (36-46); Hemoglobin 8.8 g/dL (12.0-16.0); Lymphocytes Absolute Auto 2100 /uL (1100-4500); Lymphocytes Percent Auto 39.5 % (25-40); Mean Corpuscular HGB Conc 33.4 % (30-36); Mean Corpuscular Hemoglobin 27.9 PG (26-34); Mean Corpuscular Volume 83.5 fL (80-100); Monocytes Absolute Auto 500 /uL (0-900); Monocytes Percent Auto 8.5 % (3-14); Neutrophils Absolute Auto 2700 /uL (1500-7000); Neutrophils Percent Auto 49.5 % (50-75); Platelet Count 181 X10^3/uL (150-400); Red Blood Cell Count 3.15 X10^6/uL (4.0-5.2); Red Cell Distribution Width 14.1 % (11.6-14.8); White Blood Cell Count 5.4 X10^3/uL (4.5-11.0)
[2022-06-06] MEDS: TACROLIMUS 0.5 MG CAPSULE 2 MG PO ×2 (07:22→18:53)
[2022-06-06] MEDS: MYCOPHENOLATE SODIUM 180 MG 2 EACH PO ×2 (07:22→18:54)
[2022-06-06] MEDS: predniSONE 5 MG TABLET PO (07:22)
[2022-06-06 07:29] LABS: BUN Creatinine Ratio 8.3 (6-22); Blood Urea Nitrogen 9 mg/dL (7-17); Calcium 8.1 mg/dL (8.4-10.2); Carbon Dioxide 17 mmol/L (22-32); Chloride 114 mmol/L (98-107); Estimated Glomerular Filt Rate > 60 mL/min (>60); Glucose 79 mg/dL (70-100); HEMOLYSIS < 15 (0-50); Magnesium 1.3 mg/dL (1.6-2.3); Potassium 3.4 mmol/L (3.4-5.1); Sodium 140 mmol/L (137-145)
[2022-06-06 07:56] LABS: MRSA (Nasal) PCR Not Detected (Not Detect)
[2022-06-06] MEDS: LACTATED RINGERS 1,000 ML 100 ML IV ×2 (09:37→22:12)
[2022-06-06] MEDS: cefTRIAXone 1,000 MG in SODIUM CHLORIDE 0.9% 100 ML 200 MG IV (11:01)
[2022-06-06] MEDS: MAGNESIUM SULFATE 2 GM/50 ML PIGGYBACK IV (12:27)
[2022-06-06] MEDS: LOPERAMIDE 2 MG CAPSULE PO ×2 (12:37→21:13)
--- NOTE | 2022-06-06 16:04 | P.PN_ITS ---
Subjective Subjective Date Patient Seen: 06/06/22 Interval history: 22W with PMH VATER syndrome, s/p renal transplant, history of bowel obstruction, who comes in to the hospital with nausea and diarrhea. Stool PCR pos for astrovirus. Urine cx + for klebsiella. Pt with continued frequent watery diarrhea. No vomiting. Exam Vital Signs (past 8 hours): - 06/06/22 09:00 06/06/22 12:51 06/06/22 13:00 Temperature 98 F Pulse Rate 66 Respiratory Rate 18 Blood Pressure 101/55 L Pulse Oximetry 100 99 100 Oxygen Delivery Method Room Air Room Air Oxygen Flow Rate 0 Oxygen Delivery Method Room Air Oxygen Flow Rate 0 Narrative Exam Narrative: Gen: alert, lying in bed Declines abd exam due to pressing on belly precipitates BM Neuro: pleasant, nl affect Objective Labs 06/06/22 06:15 06/06/22 06:15 Labs: Laboratory Results - last 24 hr 06/05/22 06/06/22 06/06/22 16:10 06:10 06:15 WBC 4.7 5.4 RBC 3.31 L 3.15 L Hgb 9.4 L 8.8 L Hct 27.6 L 26.3 L MCV 83.4 83.5 MCH 28.4 27.9 MCHC 34.0 33.4 RDW 14.3 14.1 Plt Count 188 181 Neut % (Auto) 71.1 49.5 L D Lymph % (Auto) 15.6 L 39.5 D Spencer % (Auto) 7.7 8.5 Eos % (Auto) 1.6 L 2.3 Baso % (Auto) 4.0 H 0.2 Neut # (Auto) 3400 2700 Lymph # (Auto) 700 L 2100 Spencer # (Auto) 400 500 Eos # (Auto) 100 100 Baso # (Auto) 200 H 0 Sodium Potassium Chloride Carbon Dioxide BUN Creatinine Estimated GFR BUN/Creatinine Ratio Glucose Calcium Magnesium Nasal Screen MRSA (PCR) Not detected 06/06/22 06:15 WBC RBC Hgb Hct MCV MCH MCHC RDW Plt Count Neut % (Auto) Lymph % (Auto) Spencer % (Auto) Eos % (Auto) Baso % (Auto) Neut # (Auto) Lymph # (Auto) Spencer # (Auto) Eos # (Auto) Baso # (Auto) Sodium 140 Potassium 3.4 Chloride 114 H Carbon Dioxide 17 L BUN 9 Creatinine 1.09 H Estimated GFR > 60 BUN/Creatinine Ratio 8.3 Glucose 79 Calcium 8.1 L Magnesium 1.3 L Nasal Screen MRSA (PCR) [facility] Medical History Cloacal malformation URI (upper respiratory infection) Surgical History Kidney transplant recipient Social History household members: significant other and other lives independently: Yes Smoking Status: Never smoker alcohol intake: current Assessment & Plan Assessment & Plan narrative: 1. RASHAD, s/p renal transplant -resolved, secondary to hypovolemia -tacrolimus level pending -continue anti-rejection meds -renal ultrasound show no hydronephrosis -trend creatinine daily while having frequent diarrhea 2. Gastroenteritis, likely infectious -continued frequent watery stools -astrovirus noted in stool -contact precautions -continue diet as tolerated -continue with IV fluids while significant diarrhea -the patient has tenderness and guarding on the right side of the abdomen is suggestive of active colitis.? -the patient is very reluctant to proceed with CT scan imaging, much less colonoscopy.? This may become necessary but will be deferred on 06/05 3. s/p renal transplant -continue transplant medications with prednisone, tacrolimus and MMF -tacrolimus level is a send out and usually takes several days -added stress dose steroid, hydrocortisone 50 IV bid 4. UTI, klebsiella -completed 3 days IV ceftriaxone 5. Normocytic anemia -no obvious rectal bleed -her hemoglobin on admission was 12.5, dropping to 8.0 on a.m. of 06/05 -Hb stable, not needing transfusion 6. Hypomagnesemia -secondary to tacrolimus and diarrhea -cont swann IV Mg as needed CODE: Full Proxy: Adelina Salazaren, mother Time Spent With Patient Critical Care time: I spent a total of [] minutes of critical care time on this patient's care today; this time is exclusive of procedural time.
[2022-06-07] VITALS (7 sets, daily range): BP systolic 100–110; BP diastolic 68–79; PULSE 69–78; RESP 16–20; TEMP 36.7–36.8; O2SAT 99–100
[2022-06-07 04:49] LABS: Add Manual Diff / Slide Review NO; Basophils Absolute Auto 0 /uL (0-100); Basophils Percent Auto 0.1 % (0-2); Eosinophils Absolute Auto 200 /uL (0-450); Eosinophils Percent Auto 3.6 % (2-4); Hematocrit 29.4 % (36-46); Hemoglobin 9.7 g/dL (12.0-16.0); Lymphocytes Absolute Auto 2600 /uL (1100-4500); Lymphocytes Percent Auto 39.1 % (25-40); Mean Corpuscular HGB Conc 32.9 % (30-36); Mean Corpuscular Hemoglobin 27.9 PG (26-34); Mean Corpuscular Volume 84.8 fL (80-100); Monocytes Absolute Auto 400 /uL (0-900); Monocytes Percent Auto 6.1 % (3-14); Neutrophils Absolute Auto 3400 /uL (1500-7000); Neutrophils Percent Auto 51.1 % (50-75); Platelet Count 193 X10^3/uL (150-400); Red Blood Cell Count 3.47 X10^6/uL (4.0-5.2); White Blood Cell Count 6.6 X10^3/uL (4.5-11.0)
[2022-06-07 04:56] LABS: BUN Creatinine Ratio 6.1 (6-22); Blood Urea Nitrogen 6 mg/dL (7-17); Calcium 8.2 mg/dL (8.4-10.2); Carbon Dioxide 19 mmol/L (22-32); Chloride 113 mmol/L (98-107); Estimated Glomerular Filt Rate > 60 mL/min (>60); Glucose 79 mg/dL (70-100); HEMOLYSIS 20 (0-50); Magnesium 1.5 mg/dL (1.6-2.3); Potassium 3.4 mmol/L (3.4-5.1); Sodium 138 mmol/L (137-145)
[2022-06-07] MEDS: predniSONE 5 MG TABLET PO (07:10)
[2022-06-07] MEDS: TACROLIMUS 0.5 MG CAPSULE 2 MG PO (07:10)
[2022-06-07] MEDS: MYCOPHENOLATE SODIUM 180 MG 2 EACH PO (07:11)
[2022-06-07] MEDS: LACTATED RINGERS 1,000 ML 100 ML IV (07:57)
[2022-06-07] MEDS: LOPERAMIDE 2 MG CAPSULE PO (09:55)
[2022-06-07] MEDS: MAGNESIUM SULFATE 2 GM/50 ML PIGGYBACK IV (12:31)
--- NOTE | 2022-06-07 12:40 | P.DS_ITS ---
History of Present Illness History of Present Illness Chief complaint: N/V since Wednesday not keeping anything down Narrative: 22W with H VATER syndrome, s/p renal transplant, history of bowel obstruction, who comes in to the hospital with nausea and diarrhea. She denies having any episodes of vomiting. No blood in stools. She notes for the last few days, since Wednesday she has diarrhea frequently, especially after eating. She has had it as frequently as hourly. She has had no recent travel, no antibiotics. She does not think she has eaten any food that has caused this. She came in feeling weak and dizzy. She notes she has some family members who have similar symptoms. She does not have dysuria, but she has bladder pain after urinating. No fevers/chills. In the ED workup was done, vitals notable for afebrile, heart rate in the 80s, blood pressure 100s/60s. Labs notable for WBC. 7.3, hgb 12.5, plts 251. Potassium 3.2, Creatinine 1.78. COVID negative, flu negative. Urine with >100 WBCs, many bacteria, positive nitrates, positive leuk esterase. Urine culture pending. She was given antibiotics and admitted for further treatment. She says she takes mmf 360mg BID, prednisone 5mg daily, and tacrolimus 2mg BID. Discharge Providers Provider Date of admission: 06/04/22 16:56 Discharge Date: 06/07/22 Primary care physician: Doctor Rhonda MD Discharge provider: Giovany Lopez MD Summary Hospital Course Discharge Diagnosis: 1. Acute gastroenteritis with astrovirus organism 2. Acute kidney injury 3. Hypomagnesemia 4. s/p kidney transplant 5. Klebsiella UTI, uncomplicated 6. Anemia PROCEDURE:? US RENAL COMPLETE ? INDICATIONS:? RENAL FAILURE ? TECHNIQUE:? Real-time scanning was performed of the kidneys and bladder, with image documentation.? ? COMPARISON:? [facility], RENAL COMPLETE, 06/03/2018, 8:06. ? FINDINGS:? ? Kidneys:? The right kidney is not definitely seen.? A potential right renal remnant can be seen. ? The left [place] kidney measures 7.1 cm in length, without stones, hydronephrosis or masses seen.? Calcifications can be seen throughout the left kidney.? The left kidney is overall not well seen, secondary to overlying bowel. ? There is a left-sided transplant kidney within the left lower quadrant, with a length of 11.8 cm and a cortical thickness of 1.5 cm.? No hydronephrosis, stones, or masses can be seen of the transplant kidney. ? Bladder:? Pre-void bladder volume is 45 mL.? No postvoid residual was obtained, the patient normally self caths.? Pre-void images demonstrate no intraluminal masses or stones.? A trace amount urinary bladder debris can be seen.? On pre-void images, only a left ureteral jet can be seen with color Doppler interrogation.? (Of note, ureteral jets may not be detectable in up to 25% of cases due to insufficient differences in specific gravity between ureteral and bladder urine).? ? Miscellaneous:? No free pelvic fluid.? IMPRESSION:? Unremarkable transplant kidney. ? Right [place] kidney not well seen. ? Left if kidney with punctate calcifications throughout. ? Bladder debris seen.? Please correlate with UTI.? ? Dictated by: Bernardo Powell M.D. on 06/04/2022 at 11:22 ? ? Approved by: Bernardo Powell M.D. on 06/04/2022 at 11:25 ? Hospital Course: Pt was managed supportively with IV hydration with improvement in frequency and solidity of bowel movements. Renal function is back to normal. She has persistent hypomagnesemia likely due to tacrolimus therapy. She was also treated with 3 days Rocephin for uncomplicated Klebsiella UTI. Status at Discharge Cognitive/behavioral status at discharge: oriented Functional status at discharge: independent ambulation Overall status at discharge: patient is progressing back to baseline Time Spent with Patient Time spent: Less than 30 minutes Exam Vital Signs (past 8 hours): - 06/07/22 06:00 06/07/22 07:00 06/07/22 10:00 Pulse Oximetry 100 99 Oxygen Delivery Method Room Air Room Air Room Air Oxygen Delivery Method Room Air Oxygen Flow Rate 0 Narrative Exam Narrative: Gen: alert, cooperative, comfortable Objective Labs 06/07/22 04:27 06/07/22 04:27 Labs: Laboratory Results - last 24 hr 06/07/22 06/07/22 04:27 04:27 WBC 6.6 RBC 3.47 L Hgb 9.7 L Hct 29.4 L MCV 84.8 MCH 27.9 MCHC 32.9 RDW 14.0 Plt Count 193 Neut % (Auto) 51.1 Lymph % (Auto) 39.1 [place] % (Auto) 6.1 Eos % (Auto) 3.6 Baso % (Auto) 0.1 Neut # (Auto) 3400 Lymph # (Auto) 2600 [place] # (Auto) 400 Eos # (Auto) 200 Baso # (Auto) 0 Sodium 138 Potassium 3.4 Chloride 113 H Carbon Dioxide 19 L BUN 6 L Creatinine 0.98 Estimated GFR > 60 BUN/Creatinine Ratio 6.1 Glucose 79 Calcium 8.2 L Magnesium 1.5 L PFSH Medical History Cloacal malformation URI (upper respiratory infection) Surgical History Kidney transplant recipient Social History household members: significant other and other lives independently: Yes Smoking Status: Never smoker alcohol intake: current Discharge Plan Discharge Plan Patient Disposition: Home Provider Discharge Comment: You were treated for gastroenteritis due to astrovirus. You were also treated with 3 days IV abx for klebsiella UTI. Your kidney function is back to normal. Your magnesium level is persistently low probably due to the tacrolimus. You can start on daily magnesium supplement once your bowel movements are back to nomal. Continue on your routine medications. Discharge orders & Medications Follow up/Referrals: Doctor Ellis MD [Primary Care Provider] - Diet/Activity/Treatments Diet: Diet as Tolerated Visit Report/Discharge Packet Stand Alone Forms: Patient Portal/API Discharge Data Primary Care Provider: Doctor Rhonda Attending Provider: Hugo Hernandez
== END 2022-06-07 15:02 | disposition home or self-care (01) | DRG 683 ==
LOC: ED 09:50 → AC 17:02 → ICU 17:34 → AC 06-08 06:12 → ICU 06-08 06:12
PROVIDERS: Family Medicine; Internal Medicine; Admitting Provider Internal Medicine; Emergency Provider Emergency Medicine; Referring Provider Emergency Medicine; Visit Provider Internal Medicine
DX: N17.9 Acute kidney failure, unspecified (principal); N39.0 Urinary tract infection, site not specified; Q87.2 Congenital malformation syndromes predominantly involving limbs; Z94.0 Kidney transplant status; K52.9 Noninfective gastroenteritis and colitis, unspecified; E83.42 Hypomagnesemia; B96.1 Klebsiella pneumoniae [K. pneumoniae] as the cause of diseases classified elsewhere; B97.89 Other viral agents as the cause of diseases classified elsewhere; Z20.822 Contact with and (suspected) exposure to COVID-19
CPT/HCPCS: 0241U; 36415; 36592; 74022; 76770; 80048; 80053; 81003; 81015; 81025; 82570; 83690; 83735; 84300; 85025; 87077; 87086; 87186; 87507; 87797; 96365; 96366; 96372; 96375; 99284; G0378; C9113; J0696; J1650; J2405; J3475; J7507

== ENCOUNTER 2022-06-13 00:42 | Emergency (ER) | payer OTHER, SELFPAY ==
[2022-06-04 17:02] VITALS: BMI 17.6
[2022-06-13] VITALS (15 sets, daily range): BP systolic 101–124; BP diastolic 62–82; PULSE 80–106; RESP 16–19; TEMP 37.6–38.3; O2SAT 95–99; BMI 17.6
--- NOTE | 2022-06-13 01:10 | ED.ABDPAIN ---
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 She is had no blurred vision, neck pain or extremity numbness, tingling or weakness. She denies any chest pain. She denies abdominal pain but states she had 1 episode of soft stool earlier today with a small amount of pinkish blood streaks, she is subsequently had bowel movements without any blood. She does not take any blood thinners. She is not been having diarrhea since her presentation a few days ago. Related Data Allergies Allergy/AdvReac Type Severity Reaction Status Date / Time ibuprofen [IBUPROFEN] Allergy Unknown KIDNEY Verified 12/22/20 22:52 TRANSPLANT PT Review of Systems Review of Systems Narrative: GENERAL: see HPI HEENT: see HPI RESPIRATORY: see HPI CARDIOVASCULAR: Denies chest pain, palpitations, orthopnea, edema, GASTROINTESTINAL: Denies nausea, vomiting, abdominal pain, diarrhea, constipation, melena. : Denies dysuria, frequency, incontinence, hematuria, urinary retention. MUSCULOSKELETAL: denies weakness, joint pain, or bony pain SKIN: Denies rash, skin lesions, or other NEUROLOGIC: Denies weakness, headache, numbness, change in speech, confusion, seizures, incoordination. PSYCHIATRIC: No concerning psychosocial issues. 12 point review of systems is negative except for those stated above Patient History Medical History Cloacal malformation URI (upper respiratory infection) Surgical History Kidney transplant recipient Social History household members: significant other and other lives independently: Yes Smoking Status: Never smoker alcohol intake: current Smoking Status: Never smoker alcohol intake frequency: 0-2 drinks per day Substance Use Type: does not use Exam Narrative Exam Narrative: GENERAL: [22] year old patient appears stated age. Well-developed patient, in mild distress. HEAD: Atraumatic. Normocephalic. EYES: Pupils equal round and reactive. Extraocular motions intact. No scleral icterus. No injection or drainage. ENT: Nose without bleeding, purulent drainage. Throat without erythema, tonsillar hypertrophy or exudate. Airway patent. NECK: Trachea midline. Non tender, no meningeal signs CARDIOVASCULAR: Regular rate and rhythm without murmurs, gallops, or rubs. RESPIRATORY: Clear to auscultation. Breath sounds equal bilaterally. No wheezes, rales, or rhonchi. GASTROINTESTINAL: Abdomen soft, non-tender, nondistended. EXTREMITIES: No edema or joint tenderness. BACK: Nontender without deformity or crepitance. No flank tenderness. NEURO: AOx3. SKIN: No rash or erythema of visible areas Initial Vital Signs Initial Vital Signs: Vital Signs Temperature 100.2 F H 06/13/22 00:57 Pulse Rate 106 H 06/13/22 00:57 Respiratory Rate 19 06/13/22 00:57 Blood Pressure 119/67 06/13/22 00:57 Pulse Oximetry 97 06/13/22 00:57 Oxygen Delivery Method Room Air 06/13/22 00:57 Course Orders Ordered: ED Orders 06/13/22 00:59 Urine Culture Stat Urine Microscopic Stat 06/13/22 01:41 Complete Blood Count AUTO DIFF Stat Comprehensive Metabolic Panel Stat Lipase Stat 06/13/22 05:44 Respiratory Panel (Film Array) Stat Discontinued Medications Acetaminophen (Acetaminophen 325 Mg Tablet) 975 mg PO NOW ONE Stop: 06/13/22 04:15 Last Admin: 06/13/22 04:30 Dose: 975 mg Documented By: BS Sodium Chloride (Normal Saline 0.9%) 1,000 mls @ 1,000 mls/hr IV BOLUS ONE Stop: 06/13/22 02:10 Last Infusion: 06/13/22 02:50 Dose: 0 mls/hr Documented By: Admin: 06/13/22 01:45 Dose: 1,000 mls/hr Documented By: HNG Sodium Chloride (Normal Saline 0.9%) 1,000 mls @ 1,000 mls/hr IV BOLUS ONE Stop: 06/13/22 05:13 Last Infusion: 06/13/22 05:22 Dose: 0 mls/hr Documented By: Admin: 06/13/22 04:31 Dose: 1,000 mls/hr Documented By: BERTA Metoclopramide HCl (Metoclopramide 10 Mg/2 Ml Inj) 10 mg IV NOW ONE Stop: 06/13/22 04:15 Last Admin: 06/13/22 04:31 Dose: 10 mg Documented By: BERTA Reevaluation(s) Reevaluation #1: Patient feeling a bit better after fluids Vital Signs Vital signs: Vital Signs - 8 hr 06/13/22 00:57 06/13/22 04:30 06/13/22 05:23 Temperature 100.2 F H 100.2 F H 101 F H Pulse Rate 106 H Respiratory Rate 19 Blood Pressure 119/67 Pulse Oximetry 97 Oxygen Delivery Method Room Air 06/13/22 06:37 06/13/22 01:52 06/13/22 01:53 Temperature 99.6 F Pulse Rate 91 H 100 H Respiratory Rate 16 Blood Pressure 103/62 108/70 Pulse Oximetry 97 96 Oxygen Delivery Method Room Air 06/13/22 01:53 06/13/22 01:59 06/13/22 02:00 Temperature Pulse Rate 100 H 102 H Respiratory Rate Blood Pressure 115/82 Pulse Oximetry 95 97 Oxygen Delivery Method 06/13/22 02:30 06/13/22 02:30 06/13/22 03:00 Temperature Pulse Rate 80 Respiratory Rate Blood Pressure 122/76 109/67 Pulse Oximetry 97 Oxygen Delivery Method 06/13/22 03:00 06/13/22 03:30 06/13/22 03:30 Temperature Pulse Rate 89 83 Respiratory Rate Blood Pressure 116/79 Pulse Oximetry 98 97 Oxygen Delivery Method 06/13/22 04:00 06/13/22 04:00 06/13/22 04:28 Temperature Pulse Rate 85 Respiratory Rate Blood Pressure 123/74 124/80 Pulse Oximetry 96 Oxygen Delivery Method 06/13/22 04:28 06/13/22 04:30 06/13/22 04:30 Temperature Pulse Rate 99 H 96 H Respiratory Rate Blood Pressure 123/81 Pulse Oximetry 99 99 Oxygen Delivery Method 06/13/22 05:00 06/13/22 05:00 06/13/22 05:30 Temperature Pulse Rate 90 Respiratory Rate Blood Pressure 101/67 106/63 Pulse Oximetry 95 Oxygen Delivery Method 06/13/22 05:30 Temperature Pulse Rate 93 H Respiratory Rate Blood Pressure Pulse Oximetry 95 Oxygen Delivery Method MDM - Abdominal Pain Lab Data 06/13/22 01:41 06/13/22 01:41 Labs: Lab Results 06/13/22 06/13/22 06/13/22 Range/Units 00:59 01:41 01:41 WBC 9.2 (4.5-11.0) X10^3/uL RBC 3.63 L (4.0-5.2) X10^6/uL Hgb 10.2 L (12.0-16.0) g/dL Hct 30.5 L (36-46) % MCV 83.9 (80-100) fL MCH 28.1 (26-34) PG MCHC 33.4 (30-36) % RDW 14.3 (11.6-14.8) % Plt Count 204 (150-400) X10^3/uL Neut % (Auto) 80.2 H (50-75) % Lymph % (Auto) 6.2 L (25-40) % [place] % (Auto) 7.3 (3-14) % Eos % (Auto) 4.9 H (2-4) % Baso % (Auto) 1.4 (0-2) % Neut # (Auto) 7400 H (0369-9398) /uL Lymph # (Auto) 600 L (4574-5298) /uL [place] # (Auto) 700 (0-900) /uL Eos # (Auto) 400 (0-450) /uL Baso # (Auto) 100 (0-100) /uL Sodium 138 (137-145) mmol/L Potassium 4.0 (3.4-5.1) mmol/L Chloride 103 (98-107) mmol/L Carbon Dioxide 25 (22-32) mmol/L BUN 16 (7-17) mg/dL Creatinine 1.25 H (0.52-1.04) mg/dL Estimated GFR > 60 (>60) mL/min BUN/Creatinine Ratio 12.8 (6-22) Glucose 89 (70-100) mg/dL Calcium 8.9 (8.4-10.2) mg/dL Total Bilirubin 0.6 (0.2-1.3) mg/dL AST 23 (14-36) IU/L ALT 17 (<35) IU/L Alkaline Phosphatase 55 (38-126) U/L Total Protein 7.1 (6.3-8.2) g/dL Albumin 4.0 (3.5-5.0) g/dL Globulin 3.1 (1.7-4.1) g/dL Albumin/Globulin Ratio 1.3 (1.0-2.8) Lipase 262 D (23-300) U/L Urine RBC 1-5/hpf (0-5/HPF) Urine WBC 10-30/hpf H (0-5/HPF) Ur Squamous Epith Cells 1-5 /hpf (0-5/HPF) Urine Bacteria Many (>30) H (None) Urine Mucus 1+ H (Negative) Ur Culture Indicated? Specimen cultured Chlamy pneumoniae PCR (Not Detect) Adenovirus (PCR) (Not Detect) B. pertussis DNA (PCR) (Not Detecte) B.parapertussis DNA PCR (Not Detecte) Coronavirus OC43 (PCR) (Not Detect) Coronavirus HKU1 (PCR) (Not Detect) Coronavirus 229E (PCR) (Not Detect) SARS-CoV-2 (PCR) (Not Detecte) Coronavirus NL63 (PCR) (Not Detect) Human Metapneumovir PCR (Not Detect) Influenza Type A (PCR) (Not Detect) Influenza Type B (PCR) (Not Detect) M. pneumoniae (PCR) (Not Detect) Parainfluenza 1 (PCR) (Not Detect) Parainfluenza 2 (PCR) (Not Detect) Parainfluenza 3 (PCR) (Not Detect) Parainfluenza 4 (PCR) (Not Detect) RSV (PCR) (Not Detect) Entero/Rhino (PCR) (Not Detect) 06/13/22 Range/Units 05:44 WBC (4.5-11.0) X10^3/uL RBC (4.0-5.2) X10^6/uL Hgb (12.0-16.0) g/dL Hct (36-46) % MCV (80-100) fL MCH (26-34) PG MCHC (30-36) % RDW (11.6-14.8) % Plt Count (150-400) X10^3/uL Neut % (Auto) (50-75) % Lymph % (Auto) (25-40) % [place] % (Auto) (3-14) % Eos % (Auto) (2-4) % Baso % (Auto) (0-2) % Neut # (Auto) (7855-3509) /uL Lymph # (Auto) (2401-7530) /uL [place] # (Auto) (0-900) /uL Eos # (Auto) (0-450) /uL Baso # (Auto) (0-100) /uL Sodium (137-145) mmol/L Potassium (3.4-5.1) mmol/L Chloride (98-107) mmol/L Carbon Dioxide (22-32) mmol/L BUN (7-17) mg/dL Creatinine (0.52-1.04) mg/dL Estimated GFR (>60) mL/min BUN/Creatinine Ratio (6-22) Glucose (70-100) mg/dL Calcium (8.4-10.2) mg/dL Total Bilirubin (0.2-1.3) mg/dL AST (14-36) IU/L ALT (<35) IU/L Alkaline Phosphatase (38-126) U/L Total Protein (6.3-8.2) g/dL Albumin (3.5-5.0) g/dL Globulin (1.7-4.1) g/dL Albumin/Globulin Ratio (1.0-2.8) Lipase (23-300) U/L Urine RBC (0-5/HPF) Urine WBC (0-5/HPF) Ur Squamous Epith Cells (0-5/HPF) Urine Bacteria (None) Urine Mucus (Negative) Ur Culture Indicated? Chlamy pneumoniae PCR Not detected (Not Detect) Adenovirus (PCR) Not detected (Not Detect) B. pertussis DNA (PCR) Not detected (Not Detecte) B.parapertussis DNA PCR Not detected (Not Detecte) Coronavirus OC43 (PCR) Not detected (Not Detect) Coronavirus HKU1 (PCR) Not detected (Not Detect) Coronavirus 229E (PCR) Not detected (Not Detect) SARS-CoV-2 (PCR) Not detected (Not Detecte) Coronavirus NL63 (PCR) Not detected (Not Detect) Human Metapneumovir PCR Detected H (Not Detect) Influenza Type A (PCR) Not detected (Not Detect) Influenza Type B (PCR) Not detected (Not Detect) M. pneumoniae (PCR) Not detected (Not Detect) Parainfluenza 1 (PCR) Not detected (Not Detect) Parainfluenza 2 (PCR) Not detected (Not Detect) Parainfluenza 3 (PCR) Not detected (Not Detect) Parainfluenza 4 (PCR) Not detected (Not Detect) RSV (PCR) Not detected (Not Detect) Entero/Rhino (PCR) Not detected (Not Detect) Point of care testing: Point of Care Testing Test Results Negative Urine Dip Bedside Urine Glucose Negative Bedside Urine Bilirubin - Negative Bedside Urine Ketone - Negative Urine Specific [place] 1.015 Bedside Urine Occult Blood +++ Bedside Urine pH 6.0 Bedside Urine Protein - Negative Bedside Urine Urobilinogen - Negative Bedside Urine Nitrite + Positive Bedside Urine Leukocytes + 70 Esterase MDM Narrative Medical decision making narrative: [22] year old patient presents with fever, body aches, runny nose, sore throat, dry hacking cough Multiple etiologies for patient's symptoms considered including, but not limited to: [Flu, COVID, RSV or other viral upper respiratory infection] Prior Charts reviewed in our EMR Primary Historian: patient Labs reviewed and interpreted by myself: Patient awake, alert and oriented, no respiratory distress, no hypoxemia. Signs and symptoms most consistent with viral upper respiratory infection. Patient's symptoms improved over duration of stay with above-stated therapies. Findings and discharge diagnosis discussed with patient/family followed by verbalization of understanding Return precautions discussed with patient/family whom verbalize understanding of diagnosis and plan Discharge Plan Departure Patient Disposition: Home Clinical Impression: Acute bronchitis due to human metapneumovirus Instructions: DI for Viral Upper Respiratory Infection -- Adult Activity Restrictions/Additional Instructions: *You have been diagnosed with [various symptoms due to viral upper respiratory infection] *What to do: *Please consider the use of [id number] antihistamines such as cetirizine syrup which can dry the secretions that are causing many of these symptoms. As we discussed, a tsp of honey is a great option to help with cough if needed. Fever: *Fever is temperature over 101F, it is a common feature of most viral and bacterial infections *Fever tends to come back once the Tylenol (acetaminophen) wears off as these medications do not treat the underlying cause, just the fever itself *Consider alternating between Tylenol and Motrin so you will be giving medications prior to the previous dose wearing off: * your history and physical exam are very reassuring and there is no indication that the symptoms are due to a bacterial infection, therefore there is no indication for antibiotics. *Please follow up with your primary care provider in 2-3 days, call for an appointment. Let them know you were seen in the Emergency Department and that we ask that you be seen in follow up. We will electronically transmit a record of today's note if your PCP is in our system *If you do not have a primary care provider please contact the [facility] Resource line at [phone]. They will ask some questions about your medical history and help get you set up with a doctor in the community. *Return to Emergency Department if you should have any new, worsening or concerning symptoms increased work of breathing with flaring of nostrils, using belly to breathe, persistent vomiting, or other bothersome symptoms Stand Alone Forms: Patient Portal/API
[2022-06-13 01:20] LABS: RBC Urine 1-5/HPF (0-5/HPF); WBC Urine 10-30/HPF (0-5/HPF)
[2022-06-13 01:21] LABS: Bacteria Urine Many (>30); Culture Indicated Urine Specimen Cultured; Mucus Urine 1+ (Negative); Squamous Epithelial Cell Urine 1-5 /HPF (0-5/HPF)
[2022-06-13] MEDS: SODIUM CHLORIDE 0.9% 1,000 ML 1000 ML IV ×2 (01:45→04:31)
[2022-06-13 01:49] LABS: Add Manual Diff / Slide Review NO; Basophils Absolute Auto 100 /uL (0-100); Basophils Percent Auto 1.4 % (0-2); Eosinophils Absolute Auto 400 /uL (0-450); Eosinophils Percent Auto 4.9 % (2-4); Hematocrit 30.5 % (36-46); Hemoglobin 10.2 g/dL (12.0-16.0); Lymphocytes Absolute Auto 600 /uL (1100-4500); Lymphocytes Percent Auto 6.2 % (25-40); Mean Corpuscular HGB Conc 33.4 % (30-36); Mean Corpuscular Hemoglobin 28.1 PG (26-34); Mean Corpuscular Volume 83.9 fL (80-100); Monocytes Absolute Auto 700 /uL (0-900); Monocytes Percent Auto 7.3 % (3-14); Neutrophils Absolute Auto 7400 /uL (1500-7000); Neutrophils Percent Auto 80.2 % (50-75); Platelet Count 204 X10^3/uL (150-400); Red Blood Cell Count 3.63 X10^6/uL (4.0-5.2); Red Cell Distribution Width 14.3 % (11.6-14.8); White Blood Cell Count 9.2 X10^3/uL (4.5-11.0)
[2022-06-13 02:04] LABS: Alanine Aminotransferase 17 IU/L (<35); Albumin Globulin Ratio 1.3 (1.0-2.8); Alkaline Phosphatase 55 U/L (38-126); Aspartate Aminotransferase 23 IU/L (14-36); BUN Creatinine Ratio 12.8 (6-22); Bilirubin Total 0.6 mg/dL (0.2-1.3); Blood Urea Nitrogen 16 mg/dL (7-17); Calcium 8.9 mg/dL (8.4-10.2); Carbon Dioxide 25 mmol/L (22-32); Chloride 103 mmol/L (98-107); Estimated Glomerular Filt Rate > 60 mL/min (>60); Globulin 3.1 g/dL (1.7-4.1); Glucose 89 mg/dL (70-100); HEMOLYSIS < 15 (0-50); Lipase 262 U/L (23-300); Sodium 138 mmol/L (137-145); Total Protein 7.1 g/dL (6.3-8.2)
[2022-06-13] MEDS: ACETAMINOPHEN 325 MG TABLET 975 MG PO (04:30)
[2022-06-13] MEDS: METOCLOPRAMIDE 10 MG/2 ML INJ IV (04:31)
[2022-06-13 06:45] LABS: Adenovirus Not Detected (Not Detect); Coronavirus 229E Not Detected (Not Detect); Coronavirus HKU1 Not Detected (Not Detect); Coronavirus NL 63 Not Detected (Not Detect); SARS- CoV-2 Not Detected (Not Detecte)
[2022-06-13 06:46] LABS: B. parapertussis Not Detected (Not Detecte); Bordetella pertussis Not Detected (Not Detecte); Chlamydophila pneumoniae Not Detected (Not Detect); Coronavirus OC43 Not Detected (Not Detect); Human Metapneumovirus Detected (Not Detect); Human Rhinovirus/Enterovirus Not Detected (Not Detect); Influenza A Not Detected (Not Detect); Influenza B Not Detected (Not Detect); Mycoplasma pneumoniae Not Detected (Not Detect); Parainfluenza Virus 1 Not Detected (Not Detect); Parainfluenza Virus 2 Not Detected (Not Detect); Parainfluenza Virus 3 Not Detected (Not Detect); Parainfluenza Virus 4 Not Detected (Not Detect); Respiratory Syncytial Virus Not Detected (Not Detect)
== END 2022-06-13 07:06 | disposition home or self-care (01) ==
PROVIDERS: Emergency Provider Emergency Medicine
DX: J20.8 Acute bronchitis due to other specified organisms (principal); Z20.822 Contact with and (suspected) exposure to COVID-19
CPT/HCPCS: 36415; 80053; 81003; 81015; 81025; 83690; 85025; 87077; 87086; 87186; 87633; 96361; 96374; 99284; J2765

== ENCOUNTER 2023-09-05 23:15 | Emergency (ER) | payer OTHER, SELFPAY ==
[2022-06-04 17:02] VITALS: BMI 17.6
[2023-09-05 23:20] VITALS: BP 123/67; PULSE 81; RESP 18; TEMP 36.1; O2SAT 99; BMI 17.2
[2023-09-05 23:55] LABS: Add Manual Diff / Slide Review NO; Basophils Absolute Auto 100 /uL (0-100); Basophils Percent Auto 0.6 % (0-2); Eosinophils Absolute Auto 200 /uL (0-450); Eosinophils Percent Auto 1.9 % (2-4); Hematocrit 28.5 % (36-46); Hemoglobin 9.5 g/dL (12.0-16.0); Lymphocytes Absolute Auto 3000 /uL (1100-4500); Lymphocytes Percent Auto 25.7 % (25-40); Mean Corpuscular HGB Conc 33.2 % (30-36); Mean Corpuscular Hemoglobin 27.3 PG (26-34); Mean Corpuscular Volume 82.3 fL (80-100); Monocytes Absolute Auto 800 /uL (0-900); Monocytes Percent Auto 6.8 % (3-14); Neutrophils Absolute Auto 7700 /uL (1500-7000); Platelet Count 230 X10^3/uL (150-400); Red Blood Cell Count 3.47 X10^6/uL (4.0-5.2); Red Cell Distribution Width 14.8 % (11.6-14.8); White Blood Cell Count 11.8 X10^3/uL (4.5-11.0)
[2023-09-06 00:02] LABS: Alanine Aminotransferase 15 IU/L (<35); Albumin 4.2 g/dL (3.5-5.0); Albumin Globulin Ratio 1.6 (1.0-2.8); Alkaline Phosphatase 59 U/L (38-126); Aspartate Aminotransferase 25 IU/L (14-36); BUN Creatinine Ratio 13.5 (6-22); Bilirubin Total 0.6 mg/dL (0.2-1.3); Blood Urea Nitrogen 15 mg/dL (7-17); Calcium 9.1 mg/dL (8.4-10.2); Carbon Dioxide 27 mmol/L (22-32); Chloride 106 mmol/L (98-107); Estimated Glomerular Filt Rate > 60 mL/min (>60); Globulin 2.7 g/dL (1.7-4.1); Glucose 99 mg/dL (70-100); HEMOLYSIS < 15 (0-50); Potassium 3.7 mmol/L (3.4-5.1); Sodium 139 mmol/L (137-145); Total Protein 6.9 g/dL (6.3-8.2)
[2023-09-06 00:11] LABS: RBC Urine None Seen (0-5/HPF); Squamous Epithelial Cell Urine 1-5 /HPF (0-5/HPF); Urine Volume 10mL (spun); WBC Urine 1-5/HPF (0-5/HPF)
[2023-09-06 00:12] LABS: Bacteria Urine Moderate (10-30); Culture Indicated Urine Specimen Cultured
[2023-09-06 01:47] VITALS: BP 112/69; PULSE 65; RESP 16; O2SAT 98
--- NOTE | 2023-09-06 02:01 | ED.GENADULT ---
HPI - General Adult General Chief complaint: Urogenital-Female Stated complaint: kidney pain/Hx kidney transplant Time Seen by Provider: 09/06/23 02:01 Source: patient Mode of arrival: Ambulatory Limitations: no limitations History of Present Illness HPI narrative: 23-year-old female with left renal transplant in 2016 having pain in left lower quadrant, on tacrolimus, mycophenolate and prednisone daily. Patient presents with complaint of left lower quadrant inguinal pain for the past month. Patient states it has been fairly constant waxes and wanes in intensity. It is made it difficult for her to sleep. She states this evening she was having trouble sleeping so she came to be evaluated. She denies fevers, she denies any chest pain or shortness of breath, no nausea or vomiting, she states she is stooling regularly, she denies any new vaginal bleeding or discharge. She states no dysuria, urgency frequency or hematuria. She thinks it is her kidney. She did have her transplant at its in the left lower abdomen. Patient states she has chronic bacturia and always has changes to her urine consistent with infection. She follows at [facility] for her transplant team. No allergies but can not take NSAIDs secondary to renal transplant. She has not taken anything for pain this evening. No tobacco, no regular alcohol, no recreational drugs. Related Data Allergies Allergy/AdvReac Type Severity Reaction Status Date / Time ibuprofen [IBUPROFEN] Allergy Unknown KIDNEY Verified 12/22/20 22:52 TRANSPLANT PT Review of Systems Review of Systems ROS Unobtainable: All systems reviewed & are unremarkable except as noted in HPI and below Patient History Medical History URI (upper respiratory infection) Cloacal malformation Surgical History Kidney transplant recipient Social History household members: significant other and other lives independently: Yes Smoking Status: Never smoker alcohol intake: current Smoking Status: Never smoker alcohol intake frequency: 0-2 drinks per day Substance Use Type: does not use Exam Narrative Exam Narrative: GENERAL: Alert and oriented x three, thin, well-appearing female in mild distress. HEENT: Head normocephalic, atraumatic, EOMI, pupils reactive, face symmetric, moist mucous membranes NECK: Supple, full range of motion CARDIOVASCULAR: Regular rate and rhythm without murmurs, rubs or gallops. RESPIRATORY: Breath sounds equal bilaterally, no wheezes rales or rhonchi. ABDOMEN: Soft, nontender. Patient has scars on her left lower abdomen consistent with prior surgery. Normoactive bowel sounds all 4 quadrants. No guarding or rebound, rigidity, no mass, no inguinal hernia or palpable fluid collections. : No CVA tenderness EXTREMITIES: Normal range of motion, no clubbing or edema. Neurovascularly intact NEUROLOGICAL: Cranial nerves II through XII grossly intact. Moving all extremities SKIN: Warm, dry, no petechiae, no rashes or lesions. Initial Vital Signs Initial Vital Signs: Vital Signs Temperature 97 F L 09/05/23 23:20 Pulse Rate 81 09/05/23 23:20 Respiratory Rate 18 09/05/23 23:20 Blood Pressure 123/67 09/05/23 23:20 Pulse Oximetry 99 09/05/23 23:20 Oxygen Delivery Method Room Air 09/05/23 23:20 Course Orders Ordered: ED Orders 09/05/23 23:45 CMP [Comprehensive Metabolic Panel] Stat Complete Blood Count AUTO DIFF Stat 09/05/23 23:53 Urine Culture Stat Urine Microscopic Stat 09/06/23 02:18 US abdomen limited Stat 09/06/23 02:20 Test Urine Stat Discontinued Medications Acetaminophen (Acetaminophen 325 Mg Tablet) 975 mg PO NOW ONE Stop: 09/06/23 02:19 Last Admin: 09/06/23 02:34 Dose: 975 mg Documented By: Vital Signs Vital signs: Vital Signs - 8 hr 09/05/23 23:20 09/06/23 01:47 09/06/23 05:01 Temperature 97 F L Pulse Rate 81 65 67 Respiratory Rate 18 16 14 Blood Pressure 123/67 112/69 117/74 Pulse Oximetry 99 98 99 Oxygen Delivery Method Room Air Room Air Room Air Medical Decision Making Lab Data 09/05/23 23:45 09/05/23 23:45 Labs: Lab Results 09/05/23 09/05/23 Range/Units 23:45 23:53 WBC 11.8 H (4.5-11.0) X10^3/uL RBC 3.47 L (4.0-5.2) X10^6/uL Hgb 9.5 L (12.0-16.0) g/dL Hct 28.5 L (36-46) % MCV 82.3 (80-100) fL MCH 27.3 (26-34) PG MCHC 33.2 (30-36) % RDW 14.8 (11.6-14.8) % Plt Count 230 (150-400) X10^3/uL Neut % (Auto) 65.0 (50-75) % Lymph % (Auto) 25.7 (25-40) % [place] % (Auto) 6.8 (3-14) % Eos % (Auto) 1.9 L (2-4) % Baso % (Auto) 0.6 (0-2) % Neut # (Auto) 7700 H (8282-2420) /uL Lymph # (Auto) 3000 (5954-7001) /uL [place] # (Auto) 800 (0-900) /uL Eos # (Auto) 200 (0-450) /uL Baso # (Auto) 100 (0-100) /uL Sodium 139 (137-145) mmol/L Potassium 3.7 (3.4-5.1) mmol/L Chloride 106 (98-107) mmol/L Carbon Dioxide 27 (22-32) mmol/L BUN 15 (7-17) mg/dL Creatinine 1.11 H (0.52-1.04) mg/dL Estimated GFR > 60 (>60) mL/min BUN/Creatinine Ratio 13.5 (6-22) Glucose 99 (70-100) mg/dL Calcium 9.1 (8.4-10.2) mg/dL Total Bilirubin 0.6 (0.2-1.3) mg/dL AST 25 (14-36) IU/L ALT 15 (<35) IU/L Alkaline Phosphatase 59 (38-126) U/L Total Protein 6.9 (6.3-8.2) g/dL Albumin 4.2 (3.5-5.0) g/dL Globulin 2.7 (1.7-4.1) g/dL Albumin/Globulin Ratio 1.6 (1.0-2.8) Urine RBC None seen (0-5/HPF) Urine WBC 1-5/hpf (0-5/HPF) Ur Squamous Epith Cells 1-5 /hpf (0-5/HPF) Urine Bacteria Moderate (10-30) H (None) Ur Culture Indicated? Specimen cultured Vol Urine Centrifuged 10ml (spun) Urine Test Negative (Negative) Urine Dip Bedside Urine Glucose Negative Bedside Urine Bilirubin - Negative Bedside Urine Ketone - Negative Urine Specific [place] 1.000 Bedside Urine Occult Blood + Bedside Urine pH 6.0 Bedside Urine Protein - Negative Bedside Urine Urobilinogen - Negative Bedside Urine Nitrite - Negative Bedside Urine Leukocytes +/- 15 Esterase Point of care testing: Urine Dip Bedside Urine Glucose Negative Bedside Urine Bilirubin - Negative Bedside Urine Ketone - Negative Urine Specific [place] 1.000 Bedside Urine Occult Blood + Bedside Urine pH 6.0 Bedside Urine Protein - Negative Bedside Urine Urobilinogen - Negative Bedside Urine Nitrite - Negative Bedside Urine Leukocytes +/- 15 Esterase MDM Narrative Medical decision making narrative: Patient's labs show white count 11.8, hemoglobin 9.5 consistent with priors over the past year 2022 ranging from 10-8. Platelets are 230. Sodium is 139 potassium 3 7 chloride 106 CO2 is 27 BUN of 15 creatinine is 1.11 appears fairly consistent with the baseline was 1.25 in June appears to arrange about 1 point 1-0.9 range. Glucose is 99 electrolytes are otherwise appropriate. Point of care urine is positive for leuks, moderate bacteria, no red cells, 1-5 white cells 1-5 squamous epithelials. Patient notes that she typically has bacteria in her urine. She states it always appears infected but is not usually and they have some special testing that they do to evaluate. Discussed with patient can obtain ultrasound to evaluate for any changes to her kidney, ovarian she is got more left lower pelvic pain. She does not have any increased pain with palpation. Patient has had a month of symptoms, no fevers no other infectious changes other than potential with her urine. Ultrasound shows Discharge Plan Departure Patient Disposition: Home Clinical Impression: S/P kidney transplant, Cyst of left ovary Instructions: DI for Ovarian Cyst Activity Restrictions/Additional Instructions: Follow up with your transplant team at [facility], call to set up appointment today or tomorrow, but your pain could be secondary to at 3.9x 2.5 x 2.1 cm left ovarian cyst. You can take Tylenol up to a 1000 mg every 6 hours as needed for pain. Return for fevers, rapidly worsening pain, vomiting, any difficulty with urination or hematuria, black or bloody stools or other new or concerning changes Stand Alone Forms: Patient Portal/API
--- NOTE | 2023-09-06 02:18 | DI.US.S_ITS ---
PROCEDURE: US ABDOMEN LIMITED INDICATIONS: LLQ pain, renal transplant in LLQ vs ovarian TECHNIQUE: Real-time focused scanning was performed of the abdomen, with image documentation. COMPARISON: None. FINDINGS: Left lower quadrant renal transplant. The kidney measures 11.8 cm, cortex measures 1.0 cm. No hydronephrosis or mass is seen. Flow is seen within the left renal transplant. Left ovary measures 4.8 x 3.3 x 3.0 cm. Simple left ovarian cyst measuring 3.9 x 2.5 x 2.1 cm. Flow is seen to the left ovary. IMPRESSION: 1. Left renal transplant appears within normal limits. 2. Left ovary contains a simple cyst measuring 3.9 cm. Findings are concordant with preliminary interpretation provided by [facility]. Dictated by: Iker Victoria M.D. on 09/06/2023 at 7:23 Approved by: Iker Victoria M.D. on 09/06/2023 at 7:24
[2023-09-06 02:30] LABS: Pregnancy Test Urine Negative (Negative)
[2023-09-06] MEDS: ACETAMINOPHEN 325 MG TABLET 975 MG PO (02:34)
[2023-09-06 05:01] VITALS: BP 117/74; PULSE 67; RESP 14; O2SAT 99
== END 2023-09-06 05:04 | disposition home or self-care (01) ==
PROVIDERS: Emergency Provider Emergency Medicine
DX: N83.202 Unspecified ovarian cyst, left side (principal); Z94.0 Kidney transplant status
CPT/HCPCS: 76705; 80053; 81003; 81015; 81025; 85025; 87077; 87086; 87186; 93976; 99283

== ENCOUNTER → 2025-01-23 07:15 | Outpatient (CLI) | payer OTHER, SELFPAY ==
[2022-06-04 17:02] VITALS: BMI 17.6
[2025-01-23 08:07] LABS: Appearance Urine UA CLOUDY; Bilirubin Urine UA NEGATIVE (NEGATIVE); Color Urine UA YELLOW; Glucose Urine UA NEGATIVE (Negative); Ketones Urine UA NEGATIVE (NEGATIVE); Leukocyte Esterase Urine UA 1+ (NEGATIVE); Nitrite Urine UA POSITIVE (Negative); Occult Blood Urine UA 1+ (Negative); Protein Urine UA TRACE (Negative); Specific Gravity Urine UA 1.015 (1.000-1.035); Urobilinogen Urine UA 0.2 E.U./dL (0.2)
[2025-01-23 08:10] LABS: pH Urine UA 7.0 (4.5-8.0)
[2025-01-23 08:14] LABS: Culture Indicated Urine Specimen Cultured
[2025-01-23 08:56] LABS: Add Manual Diff / Slide Review NO; Hematocrit 32.8 % (36-46); Hemoglobin 11.2 g/dL (12.0-16.0); Lymphocytes Absolute Auto 3000 /uL (1100-4500); Mean Corpuscular HGB Conc 34.2 % (30-36); Mean Corpuscular Hemoglobin 30.5 PG (26-34); Mean Corpuscular Volume 89.2 fL (80-100); Platelet Count 203 X10^3/uL (150-400)
[2025-01-23 09:18] LABS: Alanine Aminotransferase 10 IU/L (<35); Albumin 3.9 g/dL (3.5-5.0); Albumin Globulin Ratio 1.4 (1.0-2.8); Alkaline Phosphatase 55 U/L (38-126); Blood Urea Nitrogen 19 mg/dL (7-17); Calcium 9.4 mg/dL (8.4-10.2); Carbon Dioxide 27 mmol/L (22-32); Chloride 104 mmol/L (98-107); Estimated Glomerular Filt Rate > 60 mL/min (>60); Globulin 2.7 g/dL (1.7-4.1); Glucose 59 mg/dL (70-99); HEMOLYSIS < 15 (0-50); Potassium 3.6 mmol/L (3.4-5.1); Sodium 137 mmol/L (137-145); Total Protein 6.6 g/dL (6.3-8.2)
== END ==
PROVIDERS: Physician Assistant Medical; Referring Provider Urology; Visit Provider Urology
DX: N31.9 Neuromuscular dysfunction of bladder, unspecified (principal); N39.45 Continuous leakage; Z87 Personal history of other diseases and conditions; D64.9 Anemia, unspecified; Z94.0 Kidney transplant status
CPT/HCPCS: 36415; 80053; 80197; 81001; 85025; 87077; 87086; 87147; 87186